=== PATIENT | female | born 1950 | race Two or more races ===

== ENCOUNTER 2023-10-06 19:05 | Inpatient (IN) | payer OTHER ==
[~2023-10-06] VITALS: Ht 165.1 cm; Wt 90.0 kg
[2023-10-06 20:06] LABS: Basophils # (auto) 0.1 10 ^3/uL (0-0.2); Basophils % (auto) 1.1 % (0.0-2.0); Eosinophils # (auto) 0.3 10 ^3/uL (0-0.8); Eosinophils % (auto) 3.4 % (0.0-7.0); Hematocrit 44.6 % (36.0-46.0); Hemoglobin 14.5 g/dL (12.2-16.2); Lymphocytes # (auto) 2.2 10 ^3/uL (0.4-5.4); Lymphocytes % (auto) 26.7 % (10.0-50.0); Mean Corpuscular Hemoglobin 29.3 pg (28.0-32.0); Mean Corpuscular Hgb Conc. 32.6 g/dL (32.0-36.0); Mean Corpuscular Volume 89.8 fL (80.0-100.0); Monocytes # (auto) 0.9 10 ^3/uL (0-1.3); Monocytes % (auto) 11.1 % (0.0-12.0); Neutrophils # (auto) 4.7 10 ^3/uL (1.6-8.6); Neutrophils % (auto) 57.7 % (37.0-80.0); Nucleated Red Blood Cells % 0.1 %; Red Blood Cells 4.97 10^6/uL (4.0-5.20); Red Cell Distribution Width 18.6 % (11.8-14.3); White Blood Cell 8.2 10^3/uL (4.4-10.8)
[2023-10-06] MEDS: dilTIAZem 25 MG/5 ML VIAL IV ONE ×2 (20:21→23:36)
[2023-10-06 20:28] VITALS: RESP 17; O2SAT 98
[2023-10-06 21:21] LABS: Alanine Aminotransferase 86 U/L (7-40); Alkaline Phosphatase 165 U/L (46-116); Anion Gap 7 (5-15); Aspartate Aminotransferase 98 U/L (13-40); BUN/Creatinine Ratio 12.6 (10.0-20.0); Bilirubin, Total 0.4 mg/dL (0.2-1.0); Blood Urea Nitrogen 12 mg/dL (9-23); Calcium 9.7 mg/dL (8.7-10.4); Carbon Dioxide 27 mmol/L (20-30); Chloride 107 mmol/L (98-107); Glucose 83 mg/dL (74-106); Potassium 3.9 mmol/L (3.5-5.1); Sodium 141 mmol/L (136-145)
[2023-10-06] MEDS: ASPirin 325 MG TAB PO ONE (22:18)
[2023-10-06] MEDS: dilTIAZem 125mg/125ml BAG KIT 125 ML IV ONE (23:45)
[2023-10-07] VITALS (8 sets, daily range): BP systolic 124–142; BP diastolic 77–90; PULSE 66–90; RESP 16–23; TEMP 98.4; O2SAT 84–99
[2023-10-07] MEDS ORDERED: DEXTROSE (50%) 50ML SYRG IV PRN (00:30)
[2023-10-07] MEDS ORDERED: ONDANSETRON HCL 4 MG/2 ML VIAL IV PRN (00:30)
[2023-10-07] MEDS ORDERED: DOCUSATE SOD 100 MG CAP PO PRN (00:30)
[2023-10-07] MEDS ORDERED: IBUPROFEN 600 MG TAB PO PRN (00:30)
[2023-10-07] MEDS: dilTIAZem 125mg/125ml BAG KIT 125 ML IV ONE (01:01)
[2023-10-07] MEDS: ENOXAPARIN SOD 100 MG/1 ML SYRINGE SC SCH ×2 (02:01→17:02)
[2023-10-07] MEDS ORDERED: MORPHINE SULFATE INJ 2 MG/ml SYRG IV PRN (04:30)
[2023-10-07] MEDS ORDERED: NITROGLYCERIN 0.4 MG SL TAB SL PRN (04:30)
[2023-10-07] MEDS: HYDROcodone-ACET 5/325MG TAB PO PRN (04:57)
[2023-10-07 05:31] LABS: Basophils # (auto) 0.1 10 ^3/uL (0-0.2); Basophils % (auto) 1.1 % (0.0-2.0); Eosinophils # (auto) 0.3 10 ^3/uL (0-0.8); Eosinophils % (auto) 3.4 % (0.0-7.0); Hematocrit 39.7 % (36.0-46.0); Hemoglobin 13.1 g/dL (12.2-16.2); Lymphocytes # (auto) 1.9 10 ^3/uL (0.4-5.4); Lymphocytes % (auto) 21.9 % (10.0-50.0); Mean Corpuscular Hemoglobin 29.4 pg (28.0-32.0); Mean Corpuscular Hgb Conc. 33.1 g/dL (32.0-36.0); Monocytes # (auto) 0.7 10 ^3/uL (0-1.3); Monocytes % (auto) 8.4 % (0.0-12.0); Neutrophils # (auto) 5.7 10 ^3/uL (1.6-8.6); Neutrophils % (auto) 65.2 % (37.0-80.0); Nucleated Red Blood Cells % 0.1 %; Red Blood Cells 4.46 10^6/uL (4.0-5.20); Red Cell Distribution Width 18.5 % (11.8-14.3); White Blood Cell 8.7 10^3/uL (4.4-10.8)
[2023-10-07 05:50] LABS: Albumin 3.4 g/dL (3.2-4.8); Alkaline Phosphatase 129 U/L (46-116); Anion Gap 6 (5-15); Aspartate Aminotransferase 61 U/L (13-40); BUN/Creatinine Ratio 14.7 (10.0-20.0); Bilirubin, Total 0.5 mg/dL (0.2-1.0); Blood Urea Nitrogen 11 mg/dL (9-23); Calcium 8.8 mg/dL (8.7-10.4); Carbon Dioxide 25 mmol/L (20-30); Chloride 110 mmol/L (98-107); Glucose 61 mg/dL (74-106); Potassium 3.5 mmol/L (3.5-5.1); Sodium 141 mmol/L (136-145); Total Protein 6.8 g/dL (5.7-8.2)
[2023-10-07] MEDS: SODIUM CHLOR 0.9% PF (SALINE LOCK) 10ML VIAL/SYR IV SCH (06:03)
[2023-10-07 06:10] LABS: Alanine Aminotransferase 65 U/L (7-40)
[2023-10-07] MEDS: InsuLIN REG 1unit/0.01ml Soln (100units/ml) SC SCH (06:55)
[2023-10-07] MEDS: ACCU-CHEK COMFORT CURVE STRIP VI SCH (06:55)
[2023-10-07] MEDS ORDERED: CARVEDILOL 3.125 MG TAB PO SCH (10:00)
[2023-10-07] MEDS ORDERED: FUROSEMIDE 40 MG/4 ML VIAL IV SCH (10:00)
[2023-10-07] MEDS: FAMOTIDINE (10MG/ML) 2ML VL IV SCH (10:55)
[2023-10-07] MEDS: FUROSEMIDE 40 MG/4 ML VIAL IV SCH (11:06)
[2023-10-07] MEDS: ENOXAPARIN SOD 40 MG/0.4 ML SYRINGE SC SCH (11:06)
[2023-10-07 12:55] LABS: Urine Bacteria None Seen /hpf (None Seen)
[2023-10-07 13:05] LABS: Urine Blood TRACE /uL (Negative); Urine Clarity Clear (Clear); Urine Color Colorless (Yellow); Urine Protein, UAD Negative (Negative); Urine Specific Gravity 1.005 (1.001-1.035); Urine Urobilinogen Normal (Negative); Urine WBC <1 /hpf (0 - 5); Urine pH 6.5 (5.0-9.0)
[2023-10-07] MEDS: IOHEXOL 350 MG/ML 100ML IJ ONE (14:37)
[2023-10-07] MEDS: CARVEDILOL 3.125 MG TAB PO ONE (15:15)
[2023-10-07] MEDS ORDERED: VANCOMYCIN PER PHARMACY 0 MG IV SCH (16:30)
[2023-10-07] MEDS: CEFEPIME 1GM/ 50ML 50 ML IV ONE (17:28)
[2023-10-07] MEDS: ALBUTEROL SULF 2.5 MG/0.5ML(0.5%) NEB SOLN NEB PRN (17:56)
[2023-10-07] MEDS: VANCOMYCIN 1GM/200ML 200 ML IV ONE (20:17)
[2023-10-07] MEDS: CARVEDILOL 3.125 MG TAB PO SCH (22:56)
[2023-10-08] MEDS ORDERED: CEFEPIME 1GM/ 50ML 50 ML IV SCH (02:00)
== END 2023-10-07 23:42 | disposition short-term general hospital (02) | DRG 280 ==
LOC: ER 19:05 → TELE 10-07 04:29
PROVIDERS: ADMIT Internal Medicine Geriatric Medicine; ATTEND Emergency Medicine
DX: I11.0 Hypertensive heart disease with heart failure (principal); I26.93 Single subsegmental thrombotic pulmonary embolism without acute cor pulmonale; I21.A1 Myocardial infarction type 2; J15.69 Pneumonia due to other Gram-negative bacteria; J15.9 Unspecified bacterial pneumonia; I50.23 Acute on chronic systolic (congestive) heart failure; I47.10 Supraventricular tachycardia, unspecified; R74.8 Abnormal levels of other serum enzymes; I27.20 Pulmonary hypertension, unspecified; E11.9 Type 2 diabetes mellitus without complications; I08.3 Combined rheumatic disorders of mitral, aortic and tricuspid valves; Z82.49 Family history of ischemic heart disease and other diseases of the circulatory system
CPT/HCPCS: 36415; 71045; 71275; 80053; 81001; 82962; 83880; 84484; 85025; 85379; 93005; 93306; 93970; 94640; 99291; G0378; J1815; J3490

== ENCOUNTER 2024-10-30 19:47 | Inpatient (IN) | payer OTHER ==
[~2024-10-30] VITALS: Ht 162.6 cm; Wt 103.4 kg
[~2024-10-30 19:47] MED LIST: DABI150C7 PO; DILT180C52 PO; MONT-8 PO; OMEP1CAP70 PO; POTA-228 PO
--- NOTE | 2024-10-30 20:11 | ED.PDOC ---
HPI Comments HPI: 74 year old female presents to the emergency department via EMS with a chief complaint of RT side chest pain with generalized weakness. Per EMS, patient had a valve replacement about 1 month ago at [facility], was experiencing RT sided chest pain before surgery, patient noticed she is still experiencing RT sided chest pain, described as a pinpoint pain. For the past 2 weeks, patient has been experiencing generalized weakness, bilateral lower extremity swelling. Upon EMS arrival patient was tachycardiac with HR between 140-150. She is on 2L NC O2 at home. No other symptoms or modifying factors present at this time. Initial Vitals BP: 112/88 HR: 148 RR: 18 O2: 98% Temp: 98.4F Past Medical History: CHF, HTN, DM, HLD, asthma,CVA Past Surgical History: valve replacement Social History: Denies ETOH, smoking, and drug use. Medications: albuterol, aspirin, Lasix, metoprolol, insulin Allergies: NKDA HPI: Poor Historian. REVIEW OF SYSTEMS: CONSTITUTIONAL: Denies acute: fever, diaphoresis, chills, HEAD: Denies acute: headache, photophobia Eyes: Denies acute: Double vision, vision loss, eye pain, eye discharge. EARS: Denies acute: tinnitus, hearing loss, ear discharge, ear pain, THROAT: Denies acute: sore throat, swelling, difficulty swallowing , pain with swallowing, change in voice. NECK: Denies acute: neck pain, neck swelling, stiff neck. HEART: Denies acute : palpitations, LUNGS: Denies acute: SOB, wheezing, cough, hemoptysis ABDOMEN: Denies acute: abdominal pain, Nausea, Vomiting, diarrhea, melena , hematemesis, hematochezia SKIN: Denies acute: rash, redness, lesions, itchiness. EXTREMITIES: Denies acute: calf pain, numbness, tingling, weakness, denies pain in extremity. Denies acute: Low back pain. Neuro: Denies acute: focal neurological deficit, motor or sensory focal neurological deficit, tremors, seizure like activity, confusion, change in mental status, loss of bowel or bladder function, cauda equina like symptoms. : Denies acute: dysuria, hematuria, flank pain, increase in urinary frequency. PSYCH: Denies acute: hallucination, suicidal ideation, homicidal ideation. FEMALE: Denies acute: abnormal vaginal bleeding, foul odor, unusual discharge. PHYSICAL EXAM: General: ----NO----acute distress, awake and alert. Head: normocephalic, atraumatic. Neck: supple, trachea is midline, no swelling. Throat: Normal phonation. Eyes:, no erythema, no purulent discharge, no proptosis, no icterus. Heart: regular TACHYCARDIA, no significant murmur appreciated. Lungs: no apparent respiratory distress, Able to speak in full sentences. No wheezing, no rhonchi, no crackles. No stridors Clear to auscultation bilaterally. Abdomen: non tender to palpation, non distended, soft, no guarding, no rebound, + bowel sounds. OBESE Neuro: Awake, Alert, oriented to name, self, situation, follows commands GCS=15. Speech is normal. Skin: no petechia, no purpura, no cyanosis, non-pale, not jaundice. Lower extremities: --2/4 b/l - Pitting edema no deformity, no focal swelling, no calf TTP. Makes eye contact. moves all four extremities. Face: no apparent facial droop. ED COURSE: Bilateral lower extremities DVT was initiated, however ultrasound only performed 1 extremity. Tried to reach out to ultrasound 2 separate times with no answer. DISCLAIMER: This medical document was created using an electronic medical record system with voice recognition software and computerized dictation system. Although this document has been carefully reviewed, there might still be some phonetic and typographical errors. Occasional wrong-word or "sound-alike" substitutions may have occurred due to the inherent limitations of voice recognition software. These areas are purely typographical due to imperfections of the software programs and do not reflect any compromise in the patient's medical care. Please read the chart carefully and recognize, using context, where these substitutions have occurred. Chief Complaint: Chest Pain Time Seen by MD: 20:00 Reviewed Notes: Medications, Allergies Allergies: Coded Allergies: NO KNOWN ALLERGIES (Unverified , 10/06/23) Information Source: Patient, Emergency Med Personnel Mode of Arrival: EMS Severity: Moderate Timing: Weeks Duration: Since onset Prehospital treatment: Oxygen Location: Chest (R) Radiation: No Radiation Quality: Other (pinpoint) Onset: At Rest Cardiac Risk Factors: Hyperlipidemia, HTN, Diabetes PE Risk Factors: Recent Surgery History of: Similar pain in past, Other Modifying Factors: Nothing Past Medical History PAST MEDICAL HISTORY: Asthma, CHF, CVA, DM, High Lipids, HTN Surgical History (Other): valve replacement BIRD RAISER History: No Pertinent BIRD RAISER History Family History Family History: No family hx of Cancer, No family hx of DM, No family hx of Heart ade, No family hx of HTN, No family hx ofKidney ade, No family hx of Liver ade, No family hx of Lung ade, No family hx of Stroke Family History (Other): CHF Social History Smoker: Non-Smoker Alcohol: Denies ETOH Use Drugs: Denies Drug Use Lives In: Home EKG EKG : Pulse Rate (adult): 138 Cardiac Rhythm: ST Block: RBBB Was a procedure done? Was a procedure done?: No CP Differential Dx Differential Diagnosis: N/A Differential Diagnosis: Other (Ddx include but not limitied to gastritis, musculoskeletal pain, radiculopathy, atypical chest pain, dissection, aneurysm, ACS, unstable angina, hiatal hernia, GERD, anxiety, costochondritis, PE, pneumothroax, neoplasm, cardiac ischemia, drug abuse, anemia.) X-Ray, Labs, Meds, VS Vital Signs Date Time Temp Pulse Resp B/P (MAP) Pulse Ox O2 Delivery O2 Flow Rate FiO2 10/31/24 05:12 98.1 130 20 128/88 (101) 97 98.1 10/31/24 00:25 98.1 130 20 124/86 (99) 97 98.1 10/30/24 22:45 133 10/30/24 22:42 98.1 130 20 126/87 (100) 97 98.1 10/30/24 22:42 130 20 97 Room Air* 0 21 10/30/24 21:15 112/86 10/30/24 20:11 138 10/30/24 20:04 98.4 148 18 112/88 98 98.4 10/30/24 20:02 138 Lab Test 10/31/24 05:33 10/31/24 04:03 10/31/24 03:04 10/30/24 23:19 Range/Units POC Glucose 109 H 73 70-106 mg/dl Prothrombin Time 11.5 9.3-11.8 sec Prothrombin Time INR 1.09 0.9-1.15 Activated Partial Thromboplast Time 40.7 H 24.5-34.5 SEC Troponin I High Sensitivity 1049 *H </=34 ng/L Test 10/30/24 21:06 10/30/24 20:10 Range/Units Troponin I High Sensitivity 950 *H 1018 *H </=34 ng/L White Blood Count 11.0 H 4.4-10.8 10^3/uL Red Blood Count 3.92 L 4.0-5.20 10^6/uL Hemoglobin 11.3 L 12.2-16.2 g/dL Hematocrit 34.7 L 36.0-46.0 % Mean Corpuscular Volume 88.4 80.0-100.0 fL Mean Corpuscular Hemoglobin 28.7 28.0-32.0 pg Mean Corpuscular Hemoglobin Concent 32.5 32.0-36.0 g/dL Red Cell Distribution Width 16.4 H 11.8-14.3 % Platelet Count 270 140-450 10^3/uL Mean Platelet Volume 8.4 6.9-10.8 fL Neutrophils (%) (Auto) 62.1 37.0-80.0 % Lymphocytes (%) (Auto) 16.0 10.0-50.0 % Monocytes (%) (Auto) 10.5 0.0-12.0 % Eosinophils (%) (Auto) 10.3 H 0.0-7.0 % Basophils (%) (Auto) 1.1 0.0-2.0 % Neutrophils # (Auto) 6.8 1.6-8.6 10 ^3/uL Lymphocytes # (Auto) 1.8 0.4-5.4 10 ^3/uL Monocytes # (Auto) 1.2 0-1.3 10 ^3/uL Eosinophils # (Auto) 1.1 H 0-0.8 10 ^3/uL Basophils # (Auto) 0.1 0-0.2 10 ^3/uL Nucleated Red Blood Cells 0.0 % D-Dimer, Quantitative 1.26 H 0.0-0.49 mg/L FEU Sodium Level 144 136-145 mmol/L Potassium Level 4.6 3.5-5.1 mmol/L Chloride Level 105 98-107 mmol/L Carbon Dioxide Level 29 20-31 mmol/L Anion Gap 10 5-15 Blood Urea Nitrogen 18 9-23 mg/dL Creatinine 0.99 0.550-1.02 mg/dL Glomerular Filtration Rate Calc 59 >90 mL/min BUN/Creatinine Ratio 18.2 10.0-20.0 Serum Glucose 85 74-106 mg/dL Calcium Level 9.6 8.7-10.4 mg/dL Magnesium Level 1.9 1.6-2.6 mg/dL Total Bilirubin 0.2 0.2-1.0 mg/dL Aspartate Amino Transferase (AST) 28 13-40 U/L Alanine Aminotransferase (ALT) 14 7-40 U/L Alkaline Phosphatase 86 46-116 U/L B-Type Natriuretic Peptide 553.95 0-100 pg/mL Total Protein 8.2 5.7-8.2 g/dL Albumin 4.3 3.2-4.8 g/dL Current Medications Medications (Trade) Dose Ordered Sig/Shelley Route Start Time Stop Time Status Last Admin Furosemide (Lasix Injection) 20 mg ONCE ONCE IV 10/30/24 21:15 10/30/24 22:07 DC 10/30/24 21:15 Sodium Chloride (Saline Lock Ns) 10 ml Q8HR IV 10/31/24 06:00 10/31/24 05:19 Heparin Sodium (Porcine) 5,000 units ONCE ONCE IV 10/31/24 00:45 10/31/24 00:47 DC 10/31/24 01:02 Heparin Sodium/ Dextrose 250 ml @ 10 mls/hr Q24H IV 10/31/24 04:45 10/31/24 04:46 [place] [id number] Ph: [phone] DIAGNOSTIC IMAGING Diagnostic Imaging Report : [id number] Signed PATIENT: STELLA GUZMÁN ACCT: [id number] UNIT: [id number] : 1950 LOC: ER ROOM / BED: / AGE / SEX: 74 / F ADM STATUS: REG ER SERVICE 99 ORDERING PHYSICIAN: ERICH CAMPA DO PROCEDURE(s): CXRP - CHEST PORTABLE REASON: cp ORDER NUMBER(s): [id number], ACCESSION NUMBER(s): [id number] EXAMINATION: XY CHEST PORTABLE CLINICAL HISTORY: cp COMPARISON: At the time of this review, no recent prior studies are available for comparison. FINDINGS: Patient is rotated to the right. Multiple wires overlie the thorax. Cardiac silhouette is enlarged. Diffuse interstitial prominence and vascular redistribution. Questionable blunting of the right costophrenic angle. No definite pneumothorax. IMPRESSION: Limited study. Congestive type pattern with interstitial edema and possible small right pleural effusion. Correlate to exclude atypical infection. ATED BY: THONY EDDY MD DICTATED DATE/TIME: 10/30/242230 SIGNED BY: THONY EDDY MD SIGNED DATE/TIME: 10/30/242230 CC: [place] [id number] Ph: [phone] DIAGNOSTIC IMAGING Diagnostic Imaging Report : [id number] Signed PATIENT: STELLA GUZMÁN ACCT: [id number] UNIT: [id number] : 1950 LOC: ER ROOM / BED: / AGE / SEX: 74 / F ADM STATUS: REG ER SERVICE 39 ORDERING PHYSICIAN: ERICH CAMPA DO PROCEDURE(s): CTACH - CT ANGIO CHEST CONTRAST REASON: CP/ ORDER NUMBER(s): [id number], ACCESSION NUMBER(s): [id number] CTA Chest with intravenous contrast INDICATION: CP/ COMPARISON: CT CT ANGIO CHEST CONTRAST on DOS: 10/07/23 TECHNIQUE: Multidetector spiral CTA of the chest was performed of the chest with intravenous contrast. PULMONARY ANGIOGRAPHY PROTOCOL was utilized using a bolus- tracking technique centered on the main pulmonary artery. Axial, coronal and sagittal multiplanar and MIP reformats were performed. Radiation Dose : 1. Chest: CTDI volume is 29.14 mGy. Dose-length product is 2.54 mGy*cm The dose indicators for CT are the volume Computed Tomography (CT) Dose Index (CTDIvol) and the Dose Length Product (DLP), and are measured in units of mGy and mGy-cm, respectively. These indicators are not patient dose, but values generated from the CT scanner acquisition factors. The report includes radiation exposure data for exposures received during this examination. Findings: Pulmonary arteries: Diagnostic quality adequate for assessment of the level of the proximal subsegmental arteries. No visualized filling defect. Main pulmonary artery measures 3.6 cm in diameter. Lower neck: Unremarkable. Lungs: Diffuse coarse reticular opacities and ground-glass attenuation throughout the zyxnn-gcnmaus-jjzr-left lung. Mild honeycombing possible at the right lung apex. No focal consolidation. Central airways are clear. Pleura: No effusion or pneumothorax. Heart/Vascular Structures: Mild cardiomegaly. Aortic valve replacement and multivessel coronary atherosclerosis. Aortic and branch vessel atherosclerosis without evidence of dissection. Moderate size hiatal hernia. Lymph Nodes: Multi station mediastinal and bilateral hilar lymphadenopathy. Musculoskeletal: No evidence of acute fracture. Chronic appearing T12 wedge compression deformity. Soft tissues: Unremarkable. Upper abdomen: No acute findings. Partially assessed right renal cyst. IMPRESSION: 1. No pulmonary embolism to the level of the proximal subsegmental arteries. 2. Cardiomegaly and enlarged main pulmonary artery suggesting heart failure with pulmonary artery hypertension. 3. Diffuse bilateral coarse reticular opacities throughout both lungs. A prior CTA chest from 10/07/2023 describes a similar imaging appearance, although the exam is not available for review. Interstitial lung disease is favored overt acute process such as infection. Numerous mediastinal and bilateral hilar lymph nodes are also present. ATED BY: NEEMA SMITH MD DICTATED DATE/TIME: 10/30/242333 SIGNED BY: NEEMA SMITH MD SIGNED DATE/TIME: 10/30/242333 CC: [place] [id number] Ph: [phone] DIAGNOSTIC IMAGING Diagnostic Imaging Report : [id number] Signed PATIENT: STELLA GUZMÁN ACCT: [id number] UNIT: [id number] : 1950 LOC: ER ROOM / BED: / AGE / SEX: 74 / F ADM STATUS: REG ER SERVICE 39 ORDERING PHYSICIAN: ERICH CAMPA DO PROCEDURE(s): BLDVT - BiLat Lower DVT REASON: SWELLING ORDER NUMBER(s): [id number], ACCESSION NUMBER(s): [id number] Right lower extremity venous duplex Clinical History: SWELLING Comparison: US BILAT LOWER DVT on DOS: 8/2/24 Technique: Duplex Doppler evaluation of the deep venous system of the left lower extremity from the common femoral vein to the popliteal vein including color Doppler and spectral/pulsed waveform analysis was performed. Findings: The common femoral vein demonstrates appropriate compressibility and waveform variability. There is compressibility/patency of the great saphenous vein at the proximal thigh. The femoral vein demonstrates appropriate compressibility and waveform kimberly iability. The deep femoral vein demonstrates appropriate compressibility and waveform variability. The popliteal vein demonstrates appropriate compressibility and waveform variability. There is normal compressibility at the tibioperoneal trunk. Impression: 1. No left femoropopliteal venous thrombosis. ATED BY: NEEMA SMITH MD DICTATED DATE/TIME: 10/30/242324 SIGNED BY: NEEMA SMITH MD SIGNED DATE/TIME: 10/30/242324 CC: Time of 1ST Reevaluation: 20:30 Reevaluation 1ST: Unchanged Time of 2ND Reevaluation: 22:43 (The case was discussed with the cardiology on- call team (HPI, physical exam, labs and diagnostic tests that were available at the time of disposition, ED course, treatment plan) on the phone. They recomme nd keeping the patient in our facility. They recommend echocardiogram in the morning. They recommend to rule out PE and DVT. They recommend CT angiogram of the chest. If there is no pericardial effusion on CT scan then start the heparin. He said the EKGs shows IV conduction delay consistent with bundle branch block. Dr. Eddy) Reevaluation 2ND: Unchanged Time of 3RD Reevaluation: 23:25 (The case was discussed with the [facility] admitting team (HPI, physical exam, labs and diagnostic tests that were available at the time of disposition, ED course, treatment plan) on the phone. They authorized us to keep the patient our facility because patient is unstable. Authorization #[id number] Conley.) Reevaluation 3RD: Unchanged Patient Education/Counseling: Diagnosis, Treatment Family Education/Counseling: No Family Present Comments MDM: patient presented with the above HPI.--chest pain/generalized weakness----workup was initiated. patient was found with the above mentioned diagnosis. the following medications were ordered: please refer to order lists of meds and tests obtained by myself Dr. Campa. Patient ED course and VS have been stabilized. Patient has been reassessed in the ED and remained in a stable condition. Pertinent incidental findings were discussed with the patient and/or family. Patient/family voices understanding and is agreeable with plan. Patient has been observed in the ED adequate length of time to insure improvement/stability. Escalation of care considered: Consideration of escalation to observation or admission Cardiology was consulted. [facility] was consulted. Patient was ADMITTED to the medicine team for further evaluation and treatment of their presentation. All the reports of any imaging studies that were ordered by myself were reviewed by myself. Departure 1 Departure Time of Disposition: 20:47 Impression: Primary Impression: Chest pain Additional Impressions: Generalized weakness Left bundle branch block Tachycardia Non-STEMI (non-ST elevated myocardial infarction) Disposition: 02 SHORT TERM HOSPITAL Admit to: Tele Condition: Guarded Discharged With: Self Critical Care Note Critical Care Time?: Yes (1 hr-critical care time only) Heart Score Heart Score: Heart Score Response (Comments) Value History Moderate Suspicious [address]-Deviation 2 Age >65 2 Risk Factors >3 or Hx ASHD 2 Troponin >3 x's Normal limit 2 Total 9 I personally scribed for ERICH CAMPA DO ([email or web address]) on 10/30/24 at 20:11. Electronically submitted by Zulma Restrepo ([email or web address]). I personally scribed for ERICH CAMPA DO ([email or web address]) on 10/30/24 at 21:09. Electronically submitted by Zulma Restrepo ([email or web address]). I personally scribed for ERICH CAMPA DO ([email or web address]) on 10/30/24 at 22:39. Electronically submitted by Zulma Restrepo ([email or web address]). I personally scribed for ERICH CAMPA DO ([email or web address]) on 10/31/24 at 02:58. Electronically submitted by Zulma Restrepo ([email or web address]). I personally scribed for ERICH CAMPA DO ([email or web address]) on 10/31/24 at 06:03. Electronically submitted by Zulma Restrepo ([email or web address]). ERICH CAMPA DO Oct 30, 2024 20:11
[2024-10-30 20:26] LABS: Hematocrit 34.7 % (36.0-46.0); Hemoglobin 11.3 g/dL (12.2-16.2); Mean Corpuscular Hemoglobin 28.7 pg (28.0-32.0); Mean Corpuscular Volume 88.4 fL (80.0-100.0); Nucleated Red Blood Cells % 0.0 %
[2024-10-30 20:39] LABS: Alanine Aminotransferase 14 U/L (7-40); Albumin 4.3 g/dL (3.2-4.8); Alkaline Phosphatase 86 U/L (46-116); Anion Gap 10 (5-15); BUN/Creatinine Ratio 18.2 (10.0-20.0); Blood Urea Nitrogen 18 mg/dL (9-23); Calcium 9.6 mg/dL (8.7-10.4); Carbon Dioxide 29 mmol/L (20-31); Chloride 105 mmol/L (98-107); Glucose 85 mg/dL (74-106); Magnesium 1.9 mg/dL (1.6-2.6); Potassium 4.6 mmol/L (3.5-5.1); Sodium 144 mmol/L (136-145); Total Protein 8.2 g/dL (5.7-8.2)
[2024-10-30 20:52] LABS: Bilirubin, Total 0.2 mg/dL (0.2-1.0)
[2024-10-30] MEDS: FUROSEMIDE 20 MG/2 ML VIAL IV ONE (21:15)
--- NOTE | 2024-10-30 21:32 | ECG ---
[facility] Test Date: 2024-10-30 Test Time: 21:30:19 Pat Name: STELLA GUZMÁN Department: ED Room: [address] [place] [address] Gender: F Curriculum Designer: ASHLEE : 1950 Requested By: ERICH CAMPA Order Number: [id number] Reading MD: Travis Coffman Measurements Intervals [place] Rate: 136 P: 0 MD: 0 QRS: -38 QRSD: 154 T: 121 QT: 343 QTc: 517 Interpretive Statements Junctional tachycardia Left bundle branch block Electronically Signed On 10-31-2024 18:48:08 PDT by Travis Coffman Please click the below link to view image of tracing.
--- NOTE | 2024-10-30 22:33 | DVH ---
EXAMINATION: XY CHEST PORTABLE CLINICAL HISTORY: cp COMPARISON: At the time of this review, no recent prior studies are available for comparison. FINDINGS: Patient is rotated to the right. Multiple wires overlie the thorax. Cardiac silhouette is enlarged. Diffuse interstitial prominence and vascular redistribution. Question able blunting of the right costophrenic angle. No definite pneumothorax. IMPRESSION: Limited study. Congestive type pattern with interstitial edema and possible small right pleural effusion. Correlate to exclude atypical infection.
[2024-10-30 22:42] VITALS: PULSE 130; RESP 20; O2SAT 97
--- NOTE | 2024-10-30 22:47 | ECG ---
[facility] Test Date: 2024-10-30 Test Time: 22:45:23 Pat Name: STELLA GUZMÁN Department: ED Room: [address] [place] [address] Gender: F Souvenir Assembler: ASHLEE : 1950 Requested By: ERICH CAMPA Order Number: [id number] Reading MD: Travis Coffman Measurements Intervals [place] Rate: 133 P: 0 MA: 0 QRS: -40 QRSD: 154 T: 116 QT: 355 QTc: 529 Interpretive Statements Junctional tachycardia Left bundle branch block Electronically Signed On 10-31-2024 18:48:18 PDT by Travis Coffman Please click the below link to view image of tracing.
--- NOTE | 2024-10-30 23:27 | DVH ---
Right lower extremity venous duplex Clinical History: SWELLING Comparison: US BILAT LOWER DVT on DOS: 10/07/23 Technique: Duplex Doppler evaluation of the deep venous system of the left lower extremity from the common femor al vein to the popliteal vein including color Doppler and spectral/pulsed waveform analysis was perfo rmed. Findings: The common femoral vein demonstrates appropriate compressibility and waveform variability. There is compressibility/patency of the great saphenous vein at the proximal thigh. The femoral vein demonstrates appropriate compressibility and waveform variability. The deep femoral vein demonstrates appropriate compressibility and waveform variability. The popliteal vein demonstrates appropriate compressibility and waveform variability. There is normal compressibility at the tibioperoneal trunk. Impression: 1. No left femoropopliteal venous thrombosis.
--- NOTE | 2024-10-30 23:36 | DVH ---
CTA Chest with intravenous contrast INDICATION: CP/ COMPARISON: CT CT ANGIO CHEST CONTRAST on DOS: 10/07/23 TECHNIQUE: Multidetector spiral CTA of the chest was performed of the chest with intravenous contrast . PULMONARY ANGIOGRAPHY PROTOCOL was utilized using a bolus-tracking technique centered on the main p ulmonary artery. Axial, coronal and sagittal multiplanar and MIP reformats were performed. Radiation Dose : 1. Chest: CTDI volume is 29.14 mGy. Dose-length product is 2.54 mGy*cm The dose indicators for CT are the volume Computed Tomography (CT) Dose Index (CTDIvol) and the Dose Length Product (DLP), and are measured in units of mGy and mGy-cm, respectively. These indicators are not patient dose, but values generated from the CT scanner acquisition factors. The report includes radiation exposure data for exposures received during this examination. Findings: Pulmonary arteries: Diagnostic quality adequate for assessment of the level of the proximal subsegmen rubin arteries. No visualized filling defect. Main pulmonary artery measures 3.6 cm in diameter. Lower neck: Unremarkable. Lungs: Diffuse coarse reticular opacities and ground-glass attenuation throughout the nereq-ykhsend-e willis-left lung. Mild honeycombing possible at the right lung apex. No focal consolidation. Central ai rways are clear. Pleura: No effusion or pneumothorax. Heart/Vascular Structures: Mild cardiomegaly. Aortic valve replacement and multivessel coronary athe rosclerosis. Aortic and branch vessel atherosclerosis without evidence of dissection. Moderate size h iatal hernia. Lymph Nodes: Multi station mediastinal and bilateral hilar lymphadenopathy. Musculoskeletal: No evidence of acute fracture. Chronic appearing T12 wedge compression deformity. Soft tissues: Unremarkable. Upper abdomen: No acute findings. Partially assessed right renal cyst. IMPRESSION: 1. No pulmonary embolism to the level of the proximal subsegmental arteries. 2. Cardiomegaly and enlarged main pulmonary artery suggesting heart failure with pulmonary artery hyp ertension. 3. Diffuse bilateral coarse reticular opacities throughout both lungs. A prior CTA chest from 024 describes a similar imaging appearance, although the exam is not available for review. Interstiti al lung disease is favored overt acute process such as infection. Numerous mediastinal and bilateral hilar lymph nodes are also present.
[2024-10-31] MEDS: HEPARIN SODIUM (PORCINE) 5000 UNITS/ML 1ML VIAL IV ONE (01:02)
[2024-10-31 04:36] LABS: INR 1.09 (0.9-1.15); Partial Thromboplastin Time 40.7 SEC (24.5-34.5); Prothrombin Time 11.5 sec (9.3-11.8)
[2024-10-31] MEDS: HEPARIN DRIP/D5W 100UNITS/ML 250 ML IV SCH (04:46)
[2024-10-31] MEDS: SODIUM CHLOR 0.9% PF (SALINE LOCK) 10ML VIAL/SYR IV SCH (05:19)
[2024-10-31] MEDS: IOHEXOL 350 MG/ML 100ML IJ ONE (07:17)
[2024-10-31 07:30] VITALS: PULSE 63; RESP 23; O2SAT 100
[2024-10-31 08:37] LABS: Hematocrit 31.8 % (36.0-46.0); Hemoglobin 10.4 g/dL (12.2-16.2); Mean Corpuscular Hemoglobin 28.8 pg (28.0-32.0); Mean Corpuscular Volume 88.0 fL (80.0-100.0); Nucleated Red Blood Cells % 0.0 %
[2024-10-31 08:53] LABS: Alanine Aminotransferase 15 U/L (7-40); Albumin 4.2 g/dL (3.2-4.8); Alkaline Phosphatase 81 U/L (46-116); Anion Gap 8 (5-15); BUN/Creatinine Ratio 18.0 (10.0-20.0); Blood Urea Nitrogen 18 mg/dL (9-23); Calcium 9.4 mg/dL (8.7-10.4); Carbon Dioxide 29 mmol/L (20-31); Chloride 105 mmol/L (98-107); Glucose 101 mg/dL (74-106); Magnesium 2.0 mg/dL (1.6-2.6); Potassium 4.2 mmol/L (3.5-5.1); Sodium 142 mmol/L (136-145); Total Protein 7.5 g/dL (5.7-8.2); Triglycerides 90 mg/dL (< 150)
[2024-10-31 08:54] LABS: Bilirubin, Total 0.3 mg/dL (0.2-1.0); Cholesterol 150 mg/dL (< 200); HDL Cholesterol 54 mg/dL (40-59)
--- NOTE | 2024-10-31 09:58 | DVHINCON2 ---
Date Seen: Oct 31, 2024 Referring Physician MD Donnell Reason for Consultation NSTEMI, CP History of Present Illness This is a 74-year-old female patient who presents to the emergency room with chief complaint of generalized weakness, chest pain, dizziness, and diaphoresis. The patient states that symptoms all began at approximately 3:00 p.m. yesterday while she was watching TV. She describes the chest pain as unprovoked, constant, pressure-like in nature, located to left and right chest area and nonradiating. Associated symptoms include dizziness and diaphoresis. The patient's daughter called EMS and the patient was brought to the emergency room for further evaluation. Initial twelve lead electrocardiogram reveals a junctional tachycardia with left bundle branch block. Initial troponin level of 1018ng/L with down trend then up trend. Significant past medical history includes severe aortic valve stenosis status post TAVR (bioprosthetic), congestive heart failure, SVT, hypertension, dyslipidemia, pulmonary hypertension, PE (on dabigatran), type 2 diabetes mellitus, asthma, and morbid obesity. 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 Note, the patient and her daughter report that the patient underwent a coronary angiogram in September 2024 in which no catheter based intervention was deemed necessary. The patient was then taken for TAVR in September 2024 at [place]. Past Medical History Past medical history reviewed. No other significant than mentioned above. Past Surgical History TAVR in September 2024 Family History Family history reviewed. Social History Denies the use of tobacco, alcohol or illicit drugs. Allergies: Coded Allergies: NO KNOWN ALLERGIES (Unverified , 10/06/23) Home Meds Reported Medications Furosemide (Furosemide) 40 Mg Tab, 1 TAB PO TID 10/31/24 Prednisone (Prednisone) 5 Mg Tab, 1 TAB PO DAILY 10/31/24 Rosuvastatin Calcium (Rosuvastatin Calcium) 20 Mg Tab, 1 TAB PO HS 10/31/24 Metformin Hydrochloride (Metformin Hcl) 500 Mg Tab, 1 TAB PO BID 10/31/24 Home Meds Home medications reviewed. Current Medications Current Medications Medications (Trade) Dose Ordered Sig/Shelley Route PRN Reason Start Time Stop Time Status Last Admin Sodium Chloride (Saline Lock Ns) 10 ml Q8HR IV 10/31/24 06:00 10/31/24 05:19 Aspirin 81 mg DAILY PO 11/01/24 10:00 Heparin Sodium/ Dextrose 250 ml @ 10 mls/hr Q24H IV 10/31/24 04:45 10/31/24 04:46 Review of Systems Constitutional: Generalized weakness, diaphoresis Ears, Nose, & Throat: No symptom reported Eyes: No symptom reported Neurological: Dizziness Pulmonary/Respiratory: No symptoms reported Cardiovascular: Chest pain Gastrointestinal: No symptom reported Genitourinary: No symptom reported Musculoskeletal: No symptom reported Skin: No symptom reported Psychiatric: No symptom reported Endocrine: No symptom reported Hematologic/Lymphatic: No symptom reported Vital Signs Vital Signs Date Time Temp Pulse Resp B/P (MAP) Pulse Ox O2 Delivery O2 Flow Rate FiO2 10/31/24 07:30 63 23 100 Nasal Cannula* 2 28 10/31/24 07:30 97.9 130/69 (89) 97.9 Physical Exam General Appearance: Cooperative. Morbidly obese Pulmonary/Respiratory: Clear, bilateral breaths sounds. Cardiovascular/Chest: Regular rate and rhythm. Peripheral Pulses: 2+ Radial (R). 2+ Radial (L). 2+ Pedal (R). 2+ Pedal (L) Abdominal Exam: Normal bowel sounds. Ankle Exam: Negative ankle edema Lower extremities: Negative lower extremity edema Neuro/Mental Status: A/OX4, coherent. Thoughts/Psych: Normal thought pattern. Appropriate mood and affect. Good judgment and insight. Appearance: No acute distress. Skin Exam: Normal inspection. Normal color. Warm and dry. Labs/Diagnostic Data Labs Test 10/31/24 08:19 10/31/24 05:33 10/31/24 04:03 10/30/24 20:10 Range/Units White Blood Count 10.1 4.4-10.8 10^3/uL Red Blood Count 3.61 L 4.0-5.20 10^6/uL Hemoglobin 10.4 L 12.2-16.2 g/dL Hematocrit 31.8 L 36.0-46.0 % Mean Corpuscular Volume 88.0 80.0-100.0 fL Mean Corpuscular Hemoglobin 28.8 28.0-32.0 pg Mean Corpuscular Hemoglobin Concent 32.7 32.0-36.0 g/dL Red Cell Distribution Width 16.4 H 11.8-14.3 % Platelet Count 262 140-450 10^3/uL Mean Platelet Volume 8.3 6.9-10.8 fL Neutrophils (%) (Auto) 62.8 37.0-80.0 % Lymphocytes (%) (Auto) 16.3 10.0-50.0 % Monocytes (%) (Auto) 10.3 0.0-12.0 % Eosinophils (%) (Auto) 9.4 H 0.0-7.0 % Basophils (%) (Auto) 1.2 0.0-2.0 % Neutrophils # (Auto) 6.4 1.6-8.6 10 ^3/uL Lymphocytes # (Auto) 1.6 0.4-5.4 10 ^3/uL Monocytes # (Auto) 1.0 0-1.3 10 ^3/uL Eosinophils # (Auto) 1.0 H 0-0.8 10 ^3/uL Basophils # (Auto) 0.1 0-0.2 10 ^3/uL Nucleated Red Blood Cells 0.0 % Hemoglobin A1c 6.6 H <5.7 % A1C Troponin I High Sensitivity 1594 *H </=34 ng/L B-Type Natriuretic Peptide 1072.33 0-100 pg/mL POC Glucose 109 H 70-106 mg/dl Prothrombin Time 11.5 9.3-11.8 sec Prothrombin Time INR 1.09 0.9-1.15 Activated Partial Thromboplast Time 40.7 H 24.5-34.5 SEC Sodium Level 142 136-145 mmol/L Potassium Level 4.2 3.5-5.1 mmol/L Chloride Level 105 98-107 mmol/L Carbon Dioxide Level 29 20-31 mmol/L Anion Gap 8 5-15 Blood Urea Nitrogen 18 9-23 mg/dL Creatinine 1.00 0.550-1.02 mg/dL Glomerular Filtration Rate Calc 59 >90 mL/min BUN/Creatinine Ratio 18.0 10.0-20.0 Serum Glucose 101 74-106 mg/dL Calcium Level 9.4 8.7-10.4 mg/dL Magnesium Level 2.0 1.6-2.6 mg/dL Total Bilirubin 0.3 0.2-1.0 mg/dL Aspartate Amino Transferase (AST) 33 13-40 U/L Alanine Aminotransferase (ALT) 15 7-40 U/L Alkaline Phosphatase 81 46-116 U/L Total Protein 7.5 5.7-8.2 g/dL Albumin 4.2 3.2-4.8 g/dL Triglycerides Level 90 < 150 mg/dL Cholesterol Level 150 < 200 mg/dL LDL Cholesterol 81 < 100 mg/dL HDL Cholesterol 54 40-59 mg/dL Thyroid Stimulating Hormone (TSH) 2.53 0.55-4.78 uIU/mL D-Dimer, Quantitative 1.26 H 0.0-0.49 mg/L FEU Assessment NSTEMI Acute on chronic decompensated HFrEF, NYHA class III Severe aortic valve stenosis status post bioprosthetic TAVR History of SVT Hypertension Dyslipidemia Pulmonary hypertension History of PE (on dabigatran) Type 2 diabetes mellitus Asthma Morbid obesity Plan/Recommendation We will continue with the following plan/recommendations (Dr. Coffman): Case discussed with . We will continue with obtaining a transthoracic echocardiogram to evaluate cardiac function. Previous transthoracic echocard iogram from 10/07/2023 reveals an EF of 40%, RVSP 60 mmHg. The patient reports undergoing a coronary angiogram with left heart catheterization last month at [place] in which no catheter based intervention was deemed necessary. The patient denies any coronary stents. CT angio negative for pulmonary embolism but reveals cardiomegaly with diffuse bilateral coarse reticular opacities as well as ground-glass attenuation throughout. We will order a COVID and rapid influenza A and B. We will stop heparin drip at this time and initiate therapeutic Lovenox given that the patient is already fluid overloaded. Continue with diuresis as tolerated. Strict intake and output, daily weights, maintain fluid restriction, and low-sodium diet. Obtain medical records from [facility]. Thank you for allowing us to care for this patient. Please call with any questions or concerns. Critical care time spent: 44 minutes This medical document was created using an electronic medical record system with voice recognition software and computerized dictation system. Although this document has been carefully reviewed, there might still be some phonetic and typographical errors. Occasional wrong-word or ``sound-alike substitutions may have occurred due to the inherent limitations of voice recognition software. These areas are purely typographical due to imperfections of the software programs and do not reflect any compromise in the patient's medical care. Please read the chart carefully and recognize, using context, where these substitutions have occurred. Plan discussed with: Patient NYHA Physical activity limitations: Class3(Marked) ordinary (activity causes symtoms) Date of Service: Oct 31, 2024 Billing Provider: TERRENCE MARIE Cardiology Common Codes: 66712-WBIUVWR INP/OBS CARE (High) Cardiology Consultation Codes: 08952-[id number] CONSULT <45MIN TERRENCE MARIE Oct 31, 2024 09:58
--- NOTE | 2024-10-31 10:35 | ECG ---
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
[2024-10-31] MEDS: FUROSEMIDE 40 MG/4 ML VIAL IV SCH (11:00)
[2024-10-31 11:11] LABS: INR 1.12 (0.9-1.15); Partial Thromboplastin Time 42.3 SEC (24.5-34.5); Prothrombin Time 11.7 sec (9.3-11.8)
[2024-10-31 11:30] LABS: Urine Protein, UAD TRACE (Negative)
[2024-10-31] MEDS ORDERED: ONDANSETRON HCL 4 MG/2 ML VIAL IV PRN (11:30)
[2024-10-31] MEDS ORDERED: NITROGLYCERIN 0.4 MG SL TAB SL PRN (11:30)
[2024-10-31] MEDS ORDERED: HEPARIN DRIP/D5W 100UNITS/ML 250 ML IV SCH (11:30)
[2024-10-31] MEDS ORDERED: DOCUSATE SOD 100 MG CAP PO PRN (11:30)
[2024-10-31] MEDS ORDERED: MORPHINE SULFATE INJ 2 MG/ml SYRG IV PRN (11:30)
[2024-10-31] MEDS ORDERED: METF-370 PO (11:35)
[2024-10-31] MEDS ORDERED: FURO40TA4 PO (11:35)
[2024-10-31] MEDS ORDERED: PRE5T PO (11:35)
[2024-10-31] MEDS ORDERED: ROSU20TA56 PO (11:35)
--- NOTE | 2024-10-31 11:35 | CONS ---
Pharmacy Clinical Information: INCREASE HEPARIN DRIP RATE TO 1200 UNITS/HR PER APTT OF 42.3 NEXT APTT DRAW SCHEDULED FOR 1730 PER RX PROTOCOL RN Brain CONFIRMED AND READ BACK Kelin Leon PHARMACIST Oct 31, 2024 11:35
[2024-10-31] MEDS ORDERED: DEXTROSE (50%) 50ML SYRG IV PRN (11:45)
--- NOTE | 2024-10-31 11:55 | DVHHP2 ---
History of Present Illness Reason for Visit: Chest pain History of Present Illness Renee Sifuentes is a 74-year-old female with past medical history of congestive heart failure, hypertension, hyperlipidemia, pulmonary hypertension, asthma, morbid obesity, and diabetes, who came to the hospital with complaints of right sided chest pain. Patient states she was having frequent chest pain for a few months. She did have severe aortic stenosis that was thought to be the problem. She had a TAVR completed about 1 month ago. She states her chest pain did improve for a little bit, but came back yesterday. She states the pain started yesterday about 1500 while she was watching TV. She states the pain is right sided, constant, and pressure-like, that radiates to her shoulders. Cardiovascular: CHF, HTN, hyperipidemia, Other (TAVR) Pulmonary: Asthma, Other (Pulmonary hypertension) RECREATION MANAGER: CVA Endocrine: Diabetes Past Surgical History: Other (TAVR), Tubal Ligation, Tonsillectomy Smoke: No ALCOHOL: none Drugs: None Lives: with Family Domestic Violence: Neg Review of Systems Allergies: Coded Allergies: NO KNOWN ALLERGIES (Unverified , 10/06/23) Medications Current Medications Medications Dose Ordered Sig/Shelley Route Start Time Stop Time Status Last Admin Dose Admin Sodium Chloride 10 ml Q8HR IV 10/31/24 06:00 10/31/24 05:19 10 ML Aspirin 81 mg DAILY PO 11/01/24 10:00 Furosemide 40 mg BIDD IV 10/31/24 10:00 Enoxaparin Sodium 110 mg Q12HR SC 10/31/24 22:00 UNV Acetaminophen/ Hydrocodone Bitart 1 tab Q4HP PRN PO 10/31/24 11:30 UNV Ondansetron HCl 4 mg Q4HP PRN IV 10/31/24 11:30 UNV Docusate Sodium 100 mg BIDPRN PRN PO 10/31/24 11:30 UNV Acetaminophen 650 mg Q6HP PRN PO 10/31/24 11:30 UNV Nitroglycerin 0.4 mg Q5MINP PRN SL 10/31/24 11:30 UNV Morphine Sulfate 2 mg Q30M PRN IV 10/31/24 11:30 UNV Exam Vital Signs Vital Signs Date Time Temp Pulse Resp B/P (MAP) Pulse Ox O2 Delivery O2 Flow Rate FiO2 10/31/24 07:30 63 23 100 Nasal Cannula* 2 28 10/31/24 07:30 97.9 130/69 (89) 97.9 Labs/Xrays Labs Test 10/31/24 11:17 10/31/24 10:55 10/31/24 10:44 10/31/24 09:56 Range/Units Urine Color Light-yellow Yellow Urine Clarity Clear Clear Urine pH 5.5 5.0-9.0 Urine Specific [place] 1.050 H 1.001-1.035 Urine Protein Trace H Negative Urine Ketones Negative Negative Urine Blood Negative Negative /uL Urine Nitrite Negative Negative Urine Bilirubin Negative Negative Urine Urobilinogen Normal Negative mg/dL Urine Leukocyte Esterase Negative Negative /uL Urine RBC 10 0 - 4 /hpf Urine Microscopic WBC 5 0-5 /HPF Urine Squamous Epithelial Cells Few <5 /hpf Urine Bacteria None seen None Seen /hpf Urine Hyaline Casts Few 0 - 2 /lpf Urine Mucus Few None Seen Urine Glucose Normal Normal mg/dL Prothrombin Time 11.7 9.3-11.8 sec Prothrombin Time INR 1.12 0.9-1.15 Activated Partial Thromboplast Time 42.3 H 24.5-34.5 SEC POC Glucose 108 H 70-106 mg/dl Test 10/31/24 08:19 10/31/24 04:03 10/30/24 20:10 Range/Units White Blood Count 10.1 4.4-10.8 10^3/uL Red Blood Count 3.61 L 4.0-5.20 10^6/uL Hemoglobin 10.4 L 12.2-16.2 g/dL Hematocrit 31.8 L 36.0-46.0 % Mean Corpuscular Volume 88.0 80.0-100.0 fL Mean Corpuscular Hemoglobin 28.8 28.0-32.0 pg Mean Corpuscular Hemoglobin Concent 32.7 32.0-36.0 g/dL Red Cell Distribution Width 16.4 H 11.8-14.3 % Platelet Count 262 140-450 10^3/uL Mean Platelet Volume 8.3 6.9-10.8 fL Neutrophils (%) (Auto) 62.8 37.0-80.0 % Lymphocytes (%) (Auto) 16.3 10.0-50.0 % Monocytes (%) (Auto) 10.3 0.0-12.0 % Eosinophils (%) (Auto) 9.4 H 0.0-7.0 % Basophils (%) (Auto) 1.2 0.0-2.0 % Neutrophils # (Auto) 6.4 1.6-8.6 10 ^3/uL Lymphocytes # (Auto) 1.6 0.4-5.4 10 ^3/uL Monocytes # (Auto) 1.0 0-1.3 10 ^3/uL Eosinophils # (Auto) 1.0 H 0-0.8 10 ^3/uL Basophils # (Auto) 0.1 0-0.2 10 ^3/uL Nucleated Red Blood Cells 0.0 % Hemoglobin A1c 6.6 H <5.7 % A1C Troponin I High Sensitivity 1594 *H </=34 ng/L B-Type Natriuretic Peptide 1072.33 0-100 pg/mL Sodium Level 142 136-145 mmol/L Potassium Level 4.2 3.5-5.1 mmol/L Chloride Level 105 98-107 mmol/L Carbon Dioxide Level 29 20-31 mmol/L Anion Gap 8 5-15 Blood Urea Nitrogen 18 9-23 mg/dL Creatinine 1.00 0.550-1.02 mg/dL Glomerular Filtration Rate Calc 59 >90 mL/min BUN/Creatinine Ratio 18.0 10.0-20.0 Serum Glucose 101 74-106 mg/dL Calcium Level 9.4 8.7-10.4 mg/dL Magnesium Level 2.0 1.6-2.6 mg/dL Total Bilirubin 0.3 0.2-1.0 mg/dL Aspartate Amino Transferase (AST) 33 13-40 U/L Alanine Aminotransferase (ALT) 15 7-40 U/L Alkaline Phosphatase 81 46-116 U/L Total Protein 7.5 5.7-8.2 g/dL Albumin 4.2 3.2-4.8 g/dL Triglycerides Level 90 < 150 mg/dL Cholesterol Level 150 < 200 mg/dL LDL Cholesterol 81 < 100 mg/dL HDL Cholesterol 54 40-59 mg/dL Thyroid Stimulating Hormone (TSH) 2.53 0.55-4.78 uIU/mL D-Dimer, Quantitative 1.26 H 0.0-0.49 mg/L FEU EXAMINATION: XY CHEST PORTABLE FINDINGS: Patient is rotated to the right. Multiple wires overlie the thorax. Cardiac silhouette is enlarged. Diffuse interstitial prominence and vascular redistribution. Questionable blunting of the right costophrenic angle. No definite pneumothorax. IMPRESSION: Limited study. Congestive type pattern with interstitial edema and possible small right pleural effusion. Correlate to exclude atypical infection. CTA Chest with intravenous contrast Findings: Pulmonary arteries: Diagnostic quality adequate for assessment of the level of the proximal subsegmental arteries. No visualized filling defect. Main pulmonary artery measures 3.6 cm in diameter. Lower neck: Unremarkable. Lungs: Diffuse coarse reticular opacities and ground-glass attenuation throughout the btvro-[id number]-left lung. Mild honeycombing possible at the right lung apex. No focal consolidation. Central airways are clear. Pleura: No effusion or pneumothorax. Heart/Vascular Structures: Mild cardiomegaly. Aortic valve replacement and multivessel coronary atherosclerosis. Aortic and branch vessel atherosclerosis without evidence of dissection. Moderate size hiatal hernia. Lymph Nodes: Multi station mediastinal and bilateral hilar lymphadenopathy. Musculoskeletal: No evidence of acute fracture. Chronic appearing T12 wedge compression deformity. Soft tissues: Unremarkable. Upper abdomen: No acute findings. Partially assessed right renal cyst. IMPRESSION: 1. No pulmonary embolism to the level of the proximal subsegmental arteries. 2. Cardiomegaly and enlarged main pulmonary artery suggesting heart failure with pulmonary artery hypertension. 3. Diffuse bilateral coarse reticular opacities throughout both lungs. A prior CTA chest from 10/07/2023 describes a similar imaging appearance, although the exam is not available for review. Interstitial lung disease is favored overt acute process such as infection. Numerous mediastinal and bilateral hilar lymph nodes are also present. Right lower extremity venous duplex Findings: The common femoral vein demonstrates appropriate compressibility and waveform variability. There is compressibility/patency of the great saphenous vein at the proximal thigh. The femoral vein demonstrates appropriate compressibility and waveform variability. The deep femoral vein demonstrates appropriate compressibility and waveform variability. The popliteal vein demonstrates appropriate compressibility and waveform variability. There is normal compressibility at the tibioperoneal trunk. Impression: 1. No left femoropopliteal venous thrombosis. SEPSIS Sepsis Screen Date sepsis recognized/suspect: Oct 31, 2024 Time Sepsis recognized/suspect: 729 Recent Procedure: No On Antibiotic Therapy: No Respiratory Rate >20: Yes Heart Rate >90: No Temp<36 C (96.8 F) or >38.3 C: No SBP <90 or MAP <65 mmHG: No New Acute Mental Status Change: No Is the patient on CPAP, BIPAP,: No Physician Orders Heparin Per Pharmacy Protocol (10/31/24 04:50) * Cardiology Consult (10/31/24 06:00) Electrocardigram (10/31/24 07:40) Insert/Manage Urinary Catheter QSHIFT (10/31/24 07:30) Furosemide Injection (Lasix Injection) (10/31/24 10:00) Covid19 Antigen Kriss (10/31/24 ) Rapid Influenza A&B (10/31/24 09:48) Obtain Mr From Other Facility (10/31/24 11:26) Enoxaparin Sodium (Lovenox) (10/31/24 22:00) Strict I & O QSHIFT (10/31/24 11:28) Daily Weight (10/31/24 11:28) Maintain Fluid Restrictions QSHIFT (10/31/24 11:28) Cardiac Diet-2gna,Lofat,Lochol (10/31/24 Lunch) PTPTT (10/31/24 17:30) Heparin Per Pharmacy Protocol (10/31/24:25) Admit (10/31/24 11:30) Code Status (10/31/24 11:30) Hydrocodone-Acet 5/325mg Tab ([place] 5/32 (10/31/24 11:30) Ondansetron Hcl (Zofran) (10/31/24 11:30) Docusate Sodium Capsule (Colace Capsule) (10/31/24 11:30) Complete Blood Count (11/01/24 04:00) Comprehensive Metabolic Panel (11/01/24 04:00) Condition: Serious (10/31/24 11:30) Acetaminophen Tablet (Tylenol Tablet) (10/31/24 11:30) Nitroglycerin Sublingual (Ntrostat Subli (10/31/24 11:30) Morphine Sulfate Injection (10/31/24 11:30) Stat Ekg For Chest Pain (10/31/24 11:30) Notify Md Of Changes From Base (10/31/24 11:30) Provider Engagement Executive For 24 Hours (10/31/24 11:30) Emergency Dysrhythmia Protocol (10/31/24 11:30) Rhythm Strips Once Every Shift (10/31/24 11:30) Oxygen By Nasal Cannula (10/31/24 11:30) Vital Signs Date Time Temp Pulse Resp B/P (MAP) Pulse Ox O2 Delivery O2 Flow Rate FiO2 10/31/24 07:30 63 23 100 Nasal Cannula* 2 28 10/31/24 07:30 97.9 63 23 130/69 (89) 100 97.9 10/31/24 05:12 98.1 130 20 128/88 (101) 97 98.1 Laboratory Tests Test 10/31/24 08:19 White Blood Count 10.1 10^3/uL (4.4-10.8) Medications Medications Dose Ordered Sig/Shelley Route Start Time Stop Time Status Last Admin Dose Admin Heparin Sodium (Porcine) 5,000 units ONCE ONCE IV 10/31/24 00:45 10/31/24 00:47 DC 10/31/24 01:02 5,000 UNITS Heparin Sodium/ Dextrose 250 ml @ 10 mls/hr Q24H IV 10/31/24 04:45 10/31/24 11:24 DC 10/31/24 04:46 10 MLS/HR Sodium Chloride 10 ml Q8HR IV 10/31/24 06:00 10/31/24 05:19 10 ML Assessment/Plan Assessment/Plan Assessment: Non-STEMI (non-ST elevated myocardial infarction), Pleural effusion, CHF, Hypertension, Diabetes, Hyperlipidemia, Asthma, Morbid obesity, Plan: Admit to Tele, Cardiology consult, Heparin drip, ECHO, IV diuretics, Accu checks Q AC&HS with sliding scale, Home medications reconciled, Plan discussed with: Patient My Orders Orders - SHABBIR ROSE Procedure Category Date Status Time Admit ADMIT 10/31/24 Transmitted 11:30 Code Status CODE 10/31/24 Transmitted 11:30 Hydrocodone-Acet PHA 10/31/24 Logged 5/325mg Tab ([place] 11:30 Ondansetron Hcl PHA 10/31/24 Logged (Zofran) 11:30 Docusate Sodium PHA 10/31/24 Logged Capsule (Colace 11:30 Complete Blood Count LAB 11/01/24 Verified 04:00 Comprehensive LAB 11/01/24 Verified Metabolic Panel 04:00 Condition: Serious [facility] 10/31/24 In Process 11:30 Acetaminophen Tablet PHA 10/31/24 Logged (Tylenol Tablet) 11:30 Nitroglycerin PHA 10/31/24 Logged Sublingual (Ntrostat 11:30 Morphine Sulfate [facility] 10/31/24 Logged Injection 11:30 Stat Ekg For Chest [facility] 10/31/24 In Process Pain 11:30 Notify Of Changes [facility] 10/31/24 In Process From Base 11:30 Provider Engagement Executive For [facility] 10/31/24 In Process 24 Hours 11:30 Emergency Dysrhythmia [facility] 10/31/24 In Process Protocol 11:30 Rhythm Strips Once [facility] 10/31/24 In Process Every Shift 11:30 Oxygen By Nasal RT 10/31/24 Transmitted Cannula 11:30 Date of Service: Oct 31, 2024 Billing Provider: SHABBIR ROSE Common Visit Codes: [id number] INP/OBS CARE (HIGH) SHABBIR ROSE Oct 31, 2024 11:55
[2024-10-31 12:06] LABS: COVID19 ANTIGEN SOFIA FIA NEGATIVE (NEGATIVE)
[2024-10-31] MEDS: ADENOSINE 6 MG/2 ML INJ IV ONE (12:06)
--- NOTE | 2024-10-31 17:45 | DVHSR ---
APPROVED REPORT EXAM: LIMITED Two-dimensional and M-mode echocardiogram with Doppler and color Doppler. Blood Pressure: 128/88 mmHg INDICATION LV Assessment Surgery/Intervention Valve Replacement: Type: TAVR RISK FACTORS Obesity: Height: 5' 4", Weight: 240 DIMENSIONS LVDd3.7 (3.8-5.7cm)LA (2D)4.3 (1.9-4.0cm)Aortic Root2.3 (2.0-3.7cm) LVDs3.4 (2.5-4.0cm)LA (MM) (1.9-4.0cm)Aortic Cusp Exc (1.5-2.0cm) EF (%) 25.0 (55-70%)Rt. Atrium4.5 (1.9-4.0cm)Asc. Aorta cm IVSd1.3 (0.7-1.1cm)RV (D) (1.8-2.4cm) PWd1.3 (0.7-1.1cm) Mitral Valve MitralMitral Stenosis E wave1.70m/sMV Mean GR.7mmHg A wavem/sMV Peak GR.12mmHg E/A ratio0.02D MVA1.50cm2 DECEL [employer]emsPRESS 1/2 [id number] IVRTmsDop MVA3.63cm2 Aortic Valve Aortic ValveAortic Stenosis V10.80m/Abad Mean GR.5mmHg V21.50m/Abad Peak GR.9mmHg Tricuspid Valve TR Velocity3.30m/s [id number] Other Information Quality : Technically LimitedRhythm : Atrial Fibrillation Technically limited study due to patient position, patient can not turn on side. Conclusion Technically good study. Sinus rhythm. Biatrial enlargement. Concentric LVH. Heavy mitral annular calcification. Diminished excursion of the posterior mitral leaflet. Calcifica tion and immobility of the posterior mitral leaflet. There is a degree of mitral stenosis. Planimet ry reveals a valve area of 1.5 cm2. There is moderate pulmonic valve sclerosis. There appears to be a TAVR valve present. Left ventricular function is mildly diminished. Abnormal septal motion due to bundle branch block. EF is approximately 45-50% with normal RV function. Moderate tricuspid regurgitation with a right ventricular systolic [id number] mmHg. There is a peak gradient across the mitral valve of 12 with a mean gradient of7 mmHg. This also yields a valve area 1.5 cm2 consistent with planimetry. Pressure half-time across the mitral valve is 61 milliseconds. No pericardial effusion masses or vegetations.
[2024-10-31] MEDS: InsuLIN REG 1unit/0.01ml Soln (100units/ml) SC SCH ×2 (17:54→22:00)
[2024-10-31] MEDS: ACCU-CHEK COMFORT CURVE STRIP VI SCH (17:54)
[2024-10-31 20:15] VITALS: RESP 21; O2SAT 100
[2024-10-31 21:53] VITALS: BP 139/68; PULSE 72; RESP 16; TEMP 98.2; O2SAT 99
[2024-10-31 22:00] VITALS: BP 139/68; PULSE 72; RESP 16; TEMP 98.2; O2SAT 99
[2024-10-31] MEDS: ATORVASTATIN 20 MG TAB PO SCH (22:00)
[2024-10-31] MEDS: ENOXAPARIN SOD 120 MG/0.8 ML SYRINGE SC SCH (22:00)
[2024-10-31 22:46] VITALS: PULSE 72; RESP 16; O2SAT 99
[2024-11-01 06:29] LABS: Hematocrit 32.7 % (36.0-46.0); Hemoglobin 10.7 g/dL (12.2-16.2); Mean Corpuscular Hemoglobin 28.9 pg (28.0-32.0); Mean Corpuscular Volume 88.1 fL (80.0-100.0); Nucleated Red Blood Cells % 0.1 %
[2024-11-01 06:54] LABS: Alanine Aminotransferase 15 U/L (7-40); Alkaline Phosphatase 80 U/L (46-116); Anion Gap 8 (5-15); BUN/Creatinine Ratio 18.6 (10.0-20.0); Blood Urea Nitrogen 18 mg/dL (9-23); Calcium 9.4 mg/dL (8.7-10.4); Carbon Dioxide 33 mmol/L (20-31); Chloride 100 mmol/L (98-107); Glucose 119 mg/dL (74-106); Potassium 3.7 mmol/L (3.5-5.1); Sodium 141 mmol/L (136-145); Total Protein 7.6 g/dL (5.7-8.2)
[2024-11-01 06:55] LABS: Albumin 4.0 g/dL (3.2-4.8); Bilirubin, Total 0.6 mg/dL (0.2-1.0)
[2024-11-01 08:00] VITALS: PULSE 69
--- NOTE | 2024-11-01 10:55 | ECG ---
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
--- NOTE | 2024-11-01 11:02 | DVHPN2 ---
Consult Progress Note Subjective Other Systems: Patient is in normal sinus rhythm with first degree conduction delay on cardiac exercise physiologist. Patient denies any cardiac symptoms at time of assessment. Patient upset at time of assessment and states that she was unable to sleep last night. Objective vital signs Vital Sign Date Time Temp Pulse Resp B/P (MAP) Pulse Ox O2 Delivery O2 Flow Rate FiO2 11/01/24 08:20 Nasal Cannula* 2 28 10/31/24 22:46 72 16 99 10/31/24 22:00 98.2 139/68 (91) 98.2 Total Intake and Output 10/31/24 10/31/24 11/01/24 15:00 23:00 07:00 Intake Total 30 ml 400 ml Output Total 500 ml Balance 30 ml -100 ml medications Current Medications Medications Dose Ordered Sig/Shelley Route Start Time Stop Time Status Last Admin Dose Admin Sodium Chloride 10 ml Q8HR IV 10/31/24 06:00 11/01/24 06:00 10 ML Aspirin 81 mg DAILY PO 11/01/24 10:00 11/01/24 09:33 81 MG Furosemide 40 mg BIDD IV 10/31/24 10:00 10/31/24 18:28 40 MG Enoxaparin Sodium 110 mg Q12HR SC 10/31/24 22:00 11/01/24 09:33 110 MG Acetaminophen/ Hydrocodone Bitart 1 tab Q4HP PRN PO 10/31/24 11:30 Ondansetron HCl 4 mg Q4HP PRN IV 10/31/24 11:30 Hold Docusate Sodium 100 mg BIDPRN PRN PO 10/31/24 11:30 Acetaminophen 650 mg Q6HP PRN PO 10/31/24 11:30 Nitroglycerin 0.4 mg Q5MINP PRN SL 10/31/24 11:30 Morphine Sulfate 2 mg Q30M PRN IV 10/31/24 11:30 Prednisone 5 mg DAILY PO 11/01/24 10:00 11/01/24 09:33 5 MG Atorvastatin Calcium 40 mg HS PO 10/31/24 22:00 Diagnostic Test (Pha) 1 strip ACHS 10/31/24 17:00 10/31/24 17:54 1 STRIP Insulin Human Regular HS SC 10/31/24 22:00 Insulin Human Regular AC SC 10/31/24 17:00 Dextrose 50 ml UD PRN IV 10/31/24 11:45 Examination: GENERAL:Normal, LUNGS:Normal, CVS:Normal, NEURO:Normal laboratory and microbiology Laboratory Tests 11/01/24 05:28 Test 11/01/24 05:28 Range/Units Serum Glucose 119 H 74-106 mg/dL Problem List/Assessment/Plan Problem List/Assessment/Plan NSTEMI Acute on chronic decompensated HFmrEF, NYHA class III Severe aortic valve stenosis status post bioprosthetic TAVR History of SVT Hypertension Dyslipidemia Moderate tricuspid valve regurgitation Pulmonary hypertension History of PE (on dabigatran) Type 2 diabetes mellitus Asthma Morbid obesity Plan/Recommendations (Dr. Coffman): Case discussed with . A transthoracic echocardiogram done on this admission reveals an EF of 45-50%, RVSP 42 mmHg. Previous transthoracic echocardiogram from 10/07/2023 reveals an EF of 40%. CT angio negative for pulmonary embolism but reveals cardiomegaly with diffuse bilateral coarse reticular opacities as well as ground-glass attenuation throughout. Continue with diuresis as tolerated. Strict intake and output, daily weights, maintain fluid restriction, and low-sodium diet. The patient reports undergoing a coronary angiogram with left heart catheterization last month at [facility] in which no catheter based intervention was deemed necessary. The patient denies any coronary stents. We will request medical records from [facility] facility to confirm previous angiogram. We can consider coronary angiogram with left heart catheterization at this facility if no previous coronary angiogram was done. Thank you for allowing us to care for this patient. Please call with any questions or concerns. This medical document was created using an electronic medical record system with voice recognition software and computerized dictation system. Although this document has been carefully reviewed, there might still be some phonetic and typographical errors. Occasional wrong-word or ``sound-alike substitutions may have occurred due to the inherent limitations of voice recognition software. These areas are purely typographical due to imperfections of the software programs and do not reflect any compromise in the patient's medical care. Please read the chart carefully and recognize, using context, where these substitutions have occurred. Plan discussed with: Patient Date of Service: Nov 01, 2024 Billing Provider: TERRENCE MARIE Common Visit Codes: [id number] INP/OBS CARE(HIGH) TERRENCE MARIE Nov 01, 2024 11:02
--- NOTE | 2024-11-01 15:31 | DVHPN2 ---
Progress Note Date Seen: Nov 01, 2024 Medical Necessity Reason Pt with a Central, PICC or Fol: Yes The following are medically ne: Patterson Catheter Reason for patterson catheter: Strict I&O Subjective Patient reports: No new complaints Review of Systems: HEENT:Normal, CVS:Normal, RESPIRATORY:Normal, GI:Normal, :Normal, MSK:Normal, NEURO:Normal Objective vital signs Vital Sign Date Time Temp Pulse Resp B/P (MAP) Pulse Ox O2 Delivery O2 Flow Rate FiO2 11/01/24 08:20 Nasal Cannula* 2 28 10/31/24 22:46 72 16 99 10/31/24 22:00 98.2 139/68 (91) 98.2 Total Intake and Output 10/31/24 10/31/24 11/01/24 15:00 23:00 07:00 Intake Total 30 ml 400 ml Output Total 500 ml Balance 30 ml -100 ml medications Current Medications Medications Dose Ordered Sig/Shelley Route Start Time Stop Time Status Last Admin Dose Admin Sodium Chloride 10 ml Q8HR IV 10/31/24 06:00 11/01/24 06:00 10 ML Aspirin 81 mg DAILY PO 11/01/24 10:00 11/01/24 09:33 81 MG Furosemide 40 mg BIDD IV 10/31/24 10:00 10/31/24 18:28 40 MG Enoxaparin Sodium 110 mg Q12HR SC 10/31/24 22:00 11/01/24 09:33 110 MG Acetaminophen/ Hydrocodone Bitart 1 tab Q4HP PRN PO 10/31/24 11:30 Ondansetron HCl 4 mg Q4HP PRN IV 10/31/24 11:30 Hold Docusate Sodium 100 mg BIDPRN PRN PO 10/31/24 11:30 Acetaminophen 650 mg Q6HP PRN PO 10/31/24 11:30 Nitroglycerin 0.4 mg Q5MINP PRN SL 10/31/24 11:30 Morphine Sulfate 2 mg Q30M PRN IV 10/31/24 11:30 Prednisone 5 mg DAILY PO 11/01/24 10:00 11/01/24 09:33 5 MG Atorvastatin Calcium 40 mg HS PO 10/31/24 22:00 Diagnostic Test (Pha) 1 strip ACHS 10/31/24 17:00 10/31/24 17:54 1 STRIP Insulin Human Regular HS SC 10/31/24 22:00 Insulin Human Regular AC SC 10/31/24 17:00 Dextrose 50 ml UD PRN IV 10/31/24 11:45 Examination: GENERAL:Normal, HEENT:Normal, NECK:Normal, LUNGS:Normal, LUNGS:Abnormal (rales), CVS:Normal, ABDOMEN:Normal, MSK:Normal, SKIN:Normal, NEURO:Normal, :Normal laboratory and microbiology Laboratory Tests 11/01/24 05:28 Test 11/01/24 05:28 Range/Units Serum Glucose 119 H 74-106 mg/dL Problem List/Assessment/Plan Problem List/Assessment/Plan #1 acute on chronic systolic/diastolic heart failure: lasix iv #2 nstemi: per cardiology #3 asthma #4 h/o pe #5 h/o tavr #6 morbid obesity #7 htn #8 dm: ssi #9 hyperlipidemia #10 h/o svt advance care planning- full code- time spent 19 mins Plan discussed with: Patient My Orders My Orders Orders - DARRYN HORTON MD Procedure Category Date Status Time Montelukast Tablet PHA 11/01/24 Verified (Singulair Tablet) 22:00 Pt Request For Service PT 11/01/24 Verified 15:25 Basic Metabolic Panel LAB 11/02/24 Verified 06:00 Magnesium LAB 11/02/24 Verified 05:00 Complete Blood Count LAB 11/02/24 Verified 06:00 Chest Portable XY 11/02/24 Verified 06:00 Date of Service: Nov 01, 2024 Billing Provider: DARRYN HORTON MD Common Visit Codes: [id number] INP/OBS CARE(HIGH) Secondary Visit Codes: [id number] CARE PLAN 30 MINUTES DARRYN HORTON MD Nov 01, 2024 15:31
[2024-11-01 16:57] VITALS: BP 131/60; PULSE 71; RESP 18; TEMP 98.6; O2SAT 98
[2024-11-01 21:00] VITALS: BP 132/61; PULSE 76; RESP 22; TEMP 98.3; O2SAT 98
[2024-11-01] MEDS: MONTELUKAST SODIUM 10 MG TAB PO SCH (22:43)
[2024-11-01 22:46] VITALS: PULSE 75; RESP 18; O2SAT 97
[2024-11-02] VITALS (7 sets, daily range): BP systolic 110–136; BP diastolic 47–85; PULSE 72–83; RESP 18–20; TEMP 96.1–98.4; O2SAT 98–99
--- NOTE | 2024-11-02 05:17 | DVH ---
CHEST RADIOGRAPH Indication: chf Technique: Single frontal view of the chest was obtained COMPARISON: CT CT ANGIO CHEST CONTRAST on DOS: 10/30/24, XY CHEST PORTABLE on DOS: 10/30/24, CT CT TESS O CHEST CONTRAST on DOS: 10/07/23, XY CHEST PORTABLE on DOS: 10/06/23 FINDINGS: Lines and Tubes: None Lungs: Congestion Pleura: No effusion. No pneumothorax. Cardiomediastinal contours: Cardiomegaly Bones: Unremarkable IMPRESSION: Unchanged pulmonary vascular congestion
[2024-11-02 10:32] LABS: Chloride 99 mmol/L (98-107); Potassium 3.9 mmol/L (3.5-5.1); Sodium 140 mmol/L (136-145)
[2024-11-02 10:33] LABS: Anion Gap 9 (5-15); Calcium 9.4 mg/dL (8.7-10.4)
[2024-11-02 10:38] LABS: BUN/Creatinine Ratio 22.4 (10.0-20.0); Blood Urea Nitrogen 19 mg/dL (9-23); Hematocrit 35.5 % (36.0-46.0); Magnesium 2.0 mg/dL (1.6-2.6); Mean Corpuscular Hemoglobin 28.7 pg (28.0-32.0); Mean Corpuscular Volume 89.9 fL (80.0-100.0); Nucleated Red Blood Cells % 0.1 %
[2024-11-02 10:48] LABS: Carbon Dioxide 32 mmol/L (20-31); Glucose 113 mg/dL (74-106)
[2024-11-02 11:17] LABS: Hemoglobin 11.3 g/dL (12.2-16.2)
--- NOTE | 2024-11-02 12:42 | DVHPN2 ---
Reviewed: Care Plan, H&P, Labs, Medications, Previous Orders, Radiology Changes from previous H/P or p: No Changes Objective Vitals Vital Signs Date Time Temp Pulse Resp B/P (MAP) Pulse Ox O2 Delivery O2 Flow Rate FiO2 11/02/24 09:00 98.4 72 18 136/65 (88) 98 98.4 11/01/24 22:46 Nasal Cannula* 2 28 Intake/Output Intake and Output 11/02/24 07:00 Intake Total 1300 ml Output Total 2150 ml Balance -850 ml Intake Oral 1300 ml Output Urine Total 2150 ml Medications Current Medications Medications Dose Ordered Sig/Shelley Route Start Time Stop Time Status Last Admin Dose Admin Sodium Chloride 10 ml Q8HR IV 10/31/24 06:00 11/02/24 06:18 10 ML Aspirin 81 mg DAILY PO 11/01/24 10:00 11/02/24 10:00 81 MG Furosemide 40 mg BIDD IV 10/31/24 10:00 11/02/24 06:19 40 MG Enoxaparin Sodium 110 mg Q12HR SC 10/31/24 22:00 11/02/24 10:00 110 MG Acetaminophen/ Hydrocodone Bitart 1 tab Q4HP PRN PO 10/31/24 11:30 Ondansetron HCl 4 mg Q4HP PRN IV 10/31/24 11:30 Hold Docusate Sodium 100 mg BIDPRN PRN PO 10/31/24 11:30 Acetaminophen 650 mg Q6HP PRN PO 10/31/24 11:30 Nitroglycerin 0.4 mg Q5MINP PRN SL 10/31/24 11:30 Morphine Sulfate 2 mg Q30M PRN IV 10/31/24 11:30 Prednisone 5 mg DAILY PO 11/01/24 10:00 11/02/24 10:00 5 MG Atorvastatin Calcium 40 mg HS PO 10/31/24 22:00 11/01/24 22:43 40 MG Diagnostic Test (Pha) 1 strip ACHS 10/31/24 17:00 11/02/24 06:19 1 STRIP Insulin Human Regular HS SC 10/31/24 22:00 11/01/24 22:00 4 UNITS Insulin Human Regular AC SC 10/31/24 17:00 11/02/24 06:19 2 UNITS Dextrose 50 ml UD PRN IV 10/31/24 11:45 Montelukast Sodium 10 mg HS PO 11/01/24 22:00 11/01/24 22:43 10 MG Laboratory Results Laboratory Tests 11/02/24 09:19 Chemistry Test 11/02/24 09:19 Calcium Level 9.4 mg/dL (8.7-10.4) Magnesium Level 2.0 mg/dL (1.6-2.6) Urinalysis Test 10/31/24 10:55 Urine Color Light-yellow (Yellow) Urine Clarity Clear (Clear) Urine pH 5.5 (5.0-9.0) Urine Specific [place] 1.050 (1.001-1.035) Urine Protein Trace (Negative) H Urine Ketones Negative (Negative) Urine Blood Negative /uL (Negative) Urine Nitrite Negative (Negative) Urine Bilirubin Negative (Negative) Urine Urobilinogen Normal mg/dL (Negative) Urine Leukocyte Esterase Negative /uL (Negative) Urine RBC 10 /hpf (0 - 4) Urine Microscopic WBC 5 /HPF (0-5) Urine Squamous Epithelial Cells Few /hpf (<5) Urine Bacteria None seen /hpf (None Seen) Urine Hyaline Casts Few /lpf (0 - 2) Urine Mucus Few (None Seen) Urine Glucose Normal mg/dL (Normal) Labs and/or images reviewed: Labs reviewed by me, Image(s) reviewed by me Assessment/Plan Assessment/Plan Covering for Dr. Rodríguez #1 acute on chronic systolic/diastolic heart failure: lasix iv #2 nstemi: per cardiology #3 asthma #4 h/o pe #5 h/o tavr #6 morbid obesity #7 htn #8 dm: ssi #9 hyperlipidemia #10 h/o svt #11 PE ruled out Left heart Catheterization one month ago at [facility] was negative Time spent 70 minutes Advanced care planning time 20 minutes Patient is full code Continue Current management Plan discussed with: Patient Date of Service: Nov 02, 2024 Billing Provider: OLENA IBRAHIM MD Common Visit Codes: [id number] CARE 30-74 MIN OLENA IBRAHIM MD Nov 02, 2024 12:42
--- NOTE | 2024-11-02 16:09 | DVHPN2 ---
Consult Progress Note Subjective Other Systems: Patient in normal sinus rhythm with first-degree conduction delay at time of assessment. power lineworker reviewed, nonsustained episodes of bradycardia noted. Objective vital signs Vital Sign Date Time Temp Pulse Resp B/P (MAP) Pulse Ox O2 Delivery O2 Flow Rate FiO2 11/02/24 13:00 97.0 79 20 110/47 (68) 98 97.0 11/02/24 08:00 Nasal Cannula* 2 28 Total Intake and Output 11/01/24 11/01/24 11/02/24 15:00 23:00 07:00 Intake Total 800 ml 500 ml Output Total 400 ml 1750 ml Balance 400 ml -1250 ml medications Current Medications Medications Dose Ordered Sig/Shelley Route Start Time Stop Time Status Last Admin Dose Admin Sodium Chloride 10 ml Q8HR IV 10/31/24 06:00 11/02/24 14:17 10 ML Aspirin 81 mg DAILY PO 11/01/24 10:00 11/02/24 10:00 81 MG Furosemide 40 mg BIDD IV 10/31/24 10:00 11/02/24 06:19 40 MG Acetaminophen/ Hydrocodone Bitart 1 tab Q4HP PRN PO 10/31/24 11:30 Ondansetron HCl 4 mg Q4HP PRN IV 10/31/24 11:30 Hold Docusate Sodium 100 mg BIDPRN PRN PO 10/31/24 11:30 Acetaminophen 650 mg Q6HP PRN PO 10/31/24 11:30 Nitroglycerin 0.4 mg Q5MINP PRN SL 10/31/24 11:30 Morphine Sulfate 2 mg Q30M PRN IV 10/31/24 11:30 Prednisone 5 mg DAILY PO 11/01/24 10:00 11/02/24 10:00 5 MG Atorvastatin Calcium 40 mg HS PO 10/31/24 22:00 11/01/24 22:43 40 MG Diagnostic Test (Pha) 1 strip ACHS 10/31/24 17:00 11/02/24 11:30 1 STRIP Insulin Human Regular HS SC 10/31/24 22:00 11/01/24 22:00 4 UNITS Insulin Human Regular AC SC 10/31/24 17:00 11/02/24 06:19 2 UNITS Dextrose 50 ml UD PRN IV 10/31/24 11:45 Montelukast Sodium 10 mg HS PO 11/01/24 22:00 11/01/24 22:43 10 MG Enoxaparin Sodium 40 mg DAILY SC 11/03/24 10:00 Examination: GENERAL:Normal, LUNGS:Normal, CVS:Normal, NEURO:Normal laboratory and microbiology Laboratory Tests 11/02/24 09:19 Test 11/02/24 09:19 Range/Units Serum Glucose 113 H 74-106 mg/dL Problem List/Assessment/Plan Problem List/Assessment/Plan NSTEMI Acute on chronic decompensated HFmrEF, NYHA class III Severe aortic valve stenosis status post bioprosthetic TAVR History of SVT Hypertension Dyslipidemia Moderate tricuspid valve regurgitation Pulmonary hypertension History of PE (on dabigatran) Type 2 diabetes mellitus Asthma Morbid obesity Plan/Recommendations (Dr. Coffman): Case discussed with . A transthoracic echocardiogram done on this admission reveals an EF of 45-50%, RVSP 42 mmHg. Previous transthoracic echocardiogram from 10/07/2023 reveals an EF of 40%. Continue with guideline directed medical therapy for CHF as tolerated. For HFmrEF patients, diuretics are class 1 indication as needed. SGLT2i are class 2a, we will initiate Jardiance therapy. ACEi/ARB/ARNI and MRA considered class 2b, initiate if deemed beneficial. CT angio negative for pulmonary embolism but reveals cardiomegaly with diffuse bilateral coarse reticular opacities as well as ground-glass attenuation throughout. Chest x-ray done today (11/02/24) reveals unchanged pulmonary vascular congestion. We will increase Lasix dose. Continue with strict intake and output, daily weights, maintain fluid restriction, and low-sodium diet. The patient's daughter, Kate called [facility] and confirmed with cardiology PA that the patient underwent a coronary angiogram with left heart catheterization earlier this year without any catheter based intervention. Continue with medical management. Continue with close cardiac surveillance. Thank you for allowing us to care for this patient. Please call with any questions or concerns. This medical document was created using an electronic medical record system with voice recognition software and computerized dictation system. Although this document has been carefully reviewed, there might still be some phonetic and typographical errors. Occasional wrong-word or ``sound-alike substitutions may have occurred due to the inherent limitations of voice recognition software. These areas are purely typographical due to imperfections of the software programs and do not reflect any compromise in the patient's medical care. Please read the chart carefully and recognize, using context, where these substitutions have occurred. Plan discussed with: Patient, Daughter Date of Service: Nov 02, 2024 Billing Provider: TERRENCE MARIE Common Visit Codes: [id number] INP/OBS CARE(HIGH) TERRENCE MARIE Nov 02, 2024 16:09
[2024-11-02] MEDS: FUROSEMIDE 40 MG/4 ML VIAL IV SCH (18:03)
[2024-11-02] MEDS: HYDROcodone-ACET 5/325MG TAB PO PRN (23:07)
[2024-11-03] VITALS (8 sets, daily range): BP systolic 117–141; BP diastolic 69–82; PULSE 68–83; RESP 16–19; TEMP 97.9–98.2; O2SAT 97–100
[2024-11-03 07:01] LABS: Chloride 99 mmol/L (98-107); Sodium 141 mmol/L (136-145)
[2024-11-03 07:02] LABS: Anion Gap 8 (5-15); Calcium 9.4 mg/dL (8.7-10.4)
[2024-11-03 07:05] LABS: Carbon Dioxide 34 mmol/L (20-31); Potassium 3.4 mmol/L (3.5-5.1)
[2024-11-03 07:07] LABS: BUN/Creatinine Ratio 20.8 (10.0-20.0); Blood Urea Nitrogen 20 mg/dL (9-23); Glucose 100 mg/dL (74-106)
[2024-11-03 07:09] LABS: Hematocrit 31.9 % (36.0-46.0); Hemoglobin 10.7 g/dL (12.2-16.2); Mean Corpuscular Hemoglobin 29.2 pg (28.0-32.0); Mean Corpuscular Volume 87.2 fL (80.0-100.0); Nucleated Red Blood Cells % 0.0 %
--- NOTE | 2024-11-03 08:10 | DVHPN2 ---
Reviewed: Care Plan, H&P, Labs, Medications, Previous Orders, Radiology Changes from previous H/P or p: No Changes Objective Vitals Vital Signs Date Time Temp Pulse Resp B/P (MAP) Pulse Ox O2 Delivery O2 Flow Rate FiO2 11/03/24 06:24 139/81 11/03/24 05:00 98.0 68 19 100 98.0 11/02/24 20:00 Nasal Cannula* 2 28 Intake/Output Intake and Output 11/03/24 07:00 Intake Total 1040 ml Output Total 2225 ml Balance -1185 ml Intake Oral 1040 ml Output Urine Total 2225 ml Medications Current Medications Medications Dose Ordered Sig/Shelley Route Start Time Stop Time Status Last Admin Dose Admin Sodium Chloride 10 ml Q8HR IV 10/31/24 06:00 11/03/24 06:24 10 ML Aspirin 81 mg DAILY PO 11/01/24 10:00 11/02/24 10:00 81 MG Acetaminophen/ Hydrocodone Bitart 1 tab Q4HP PRN PO 10/31/24 11:30 11/02/24 23:07 1 TAB Ondansetron HCl 4 mg Q4HP PRN IV 10/31/24 11:30 Hold Docusate Sodium 100 mg BIDPRN PRN PO 10/31/24 11:30 Acetaminophen 650 mg Q6HP PRN PO 10/31/24 11:30 Nitroglycerin 0.4 mg Q5MINP PRN SL 10/31/24 11:30 Morphine Sulfate 2 mg Q30M PRN IV 10/31/24 11:30 Prednisone 5 mg DAILY PO 11/01/24 10:00 11/02/24 10:00 5 MG Atorvastatin Calcium 40 mg HS PO 10/31/24 22:00 11/02/24 21:09 40 MG Diagnostic Test (Pha) 1 strip ACHS 10/31/24 17:00 11/03/24 06:25 1 STRIP Insulin Human Regular HS SC 10/31/24 22:00 11/02/24 21:11 6 UNITS Insulin Human Regular AC SC 10/31/24 17:00 11/02/24 17:00 9 UNITS Dextrose 50 ml UD PRN IV 10/31/24 11:45 Montelukast Sodium 10 mg HS PO 11/01/24 22:00 11/02/24 21:09 10 MG Enoxaparin Sodium 40 mg DAILY SC 11/03/24 10:00 Furosemide 60 mg BIDD IV 11/02/24 18:00 11/03/24 06:24 60 MG Empaglifozin 10 mg DAILY PO 11/03/24 10:00 Laboratory Results Laboratory Tests 11/03/24 05:39 Chemistry Test 11/02/24 09:19 11/03/24 05:39 Calcium Level 9.4 mg/dL (8.7-10.4) 9.4 mg/dL (8.7-10.4) Magnesium Level 2.0 mg/dL (1.6-2.6) Cardiac Markers Test 11/02/24 09:19 B-Type Natriuretic Peptide 384.78 pg/mL (0-100) Urinalysis Test 10/31/24 10:55 Urine Color Light-yellow (Yellow) Urine Clarity Clear (Clear) Urine pH 5.5 (5.0-9.0) Urine Specific [place] 1.050 (1.001-1.035) Urine Protein Trace (Negative) H Urine Ketones Negative (Negative) Urine Blood Negative /uL (Negative) Urine Nitrite Negative (Negative) Urine Bilirubin Negative (Negative) Urine Urobilinogen Normal mg/dL (Negative) Urine Leukocyte Esterase Negative /uL (Negative) Urine RBC 10 /hpf (0 - 4) Urine Microscopic WBC 5 /HPF (0-5) Urine Squamous Epithelial Cells Few /hpf (<5) Urine Bacteria None seen /hpf (None Seen) Urine Hyaline Casts Few /lpf (0 - 2) Urine Mucus Few (None Seen) Urine Glucose Normal mg/dL (Normal) Labs and/or images reviewed: Labs reviewed by me, Image(s) reviewed by me Assessment/Plan Assessment/Plan Covering for Dr. Rodríguez #1 acute on chronic systolic/diastolic heart failure: lasix iv #2 nstemi: per cardiology #3 asthma #4 h/o pe #5 h/o tavr #6 morbid obesity #7 htn #8 dm: ssi #9 hyperlipidemia #10 h/o svt #11 PE ruled out Dysuria: Urinalysis urine cultures Left heart Catheterization one month ago at [facility] was negative Time spent 50 minutes Advanced care planning time 20 minutes Patient is full code Continue Current management Plan discussed with: Patient Date of Service: Nov 03, 2024 Billing Provider: OLENA IBRAHIM MD Common Visit Codes: [id number] INP/OBS CARE(HIGH) OLENA IBRAHIM MD Nov 03, 2024 08:10
[2024-11-03] MEDS: ENOXAPARIN SOD 40 MG/0.4 ML SYRINGE SC SCH (09:24)
[2024-11-03] MEDS: EMPAGLIFLOZIN 10 MG TAB PO SCH (09:24)
[2024-11-03 10:48] LABS: Urine Protein, UAD 2+ (Negative); Urine WBC Clumps PRESENT /hpf (None Seen)
[2024-11-04] VITALS (8 sets, daily range): BP systolic 128–155; BP diastolic 69–97; PULSE 39–85; RESP 17–20; TEMP 97.6–98.5; O2SAT 95–100
--- NOTE | 2024-11-04 08:22 | DVHPN2 ---
Reviewed: Care Plan, H&P, Labs, Medications, Previous Orders, Radiology Changes from previous H/P or p: No Changes Objective Vitals Vital Signs Date Time Temp Pulse Resp B/P (MAP) Pulse Ox O2 Delivery O2 Flow Rate FiO2 11/04/24 06:31 138/72 11/04/24 05:00 98.1 62 18 99 98.1 11/03/24 20:00 Nasal Cannula* 2 28 Intake/Output Intake and Output 11/04/24 07:00 Intake Total 1050 ml Output Total 2550 ml Balance -1500 ml Intake Oral 1050 ml Output Urine Total 2550 ml Medications Current Medications Medications Dose Ordered Sig/Shelley Route Start Time Stop Time Status Last Admin Dose Admin Sodium Chloride 10 ml Q8HR IV 10/31/24 06:00 11/04/24 06:32 10 ML Aspirin 81 mg DAILY PO 11/01/24 10:00 11/03/24 09:23 81 MG Acetaminophen/ Hydrocodone Bitart 1 tab Q4HP PRN PO 10/31/24 11:30 11/04/24 05:00 1 TAB Ondansetron HCl 4 mg Q4HP PRN IV 10/31/24 11:30 Hold Docusate Sodium 100 mg BIDPRN PRN PO 10/31/24 11:30 Acetaminophen 650 mg Q6HP PRN PO 10/31/24 11:30 Nitroglycerin 0.4 mg Q5MINP PRN SL 10/31/24 11:30 Morphine Sulfate 2 mg Q30M PRN IV 10/31/24 11:30 Prednisone 5 mg DAILY PO 11/01/24 10:00 11/03/24 09:25 5 MG Atorvastatin Calcium 40 mg HS PO 10/31/24 22:00 11/03/24 21:13 40 MG Diagnostic Test (Pha) 1 strip ACHS 10/31/24 17:00 11/04/24 06:32 1 STRIP Insulin Human Regular HS SC 10/31/24 22:00 11/03/24 21:14 6 UNITS Insulin Human Regular AC SC 10/31/24 17:00 11/04/24 06:33 2 UNITS Dextrose 50 ml UD PRN IV 10/31/24 11:45 Montelukast Sodium 10 mg HS PO 11/01/24 22:00 11/03/24 21:12 10 MG Enoxaparin Sodium 40 mg DAILY SC 11/03/24 10:00 11/03/24 09:24 40 MG Furosemide 60 mg BIDD IV 11/02/24 18:00 11/04/24 06:31 60 MG Empaglifozin 10 mg DAILY PO 11/03/24 10:00 Laboratory Results Laboratory Tests 11/03/24 05:39 Urinalysis Test 10/31/24 10:55 11/03/24 09:35 Urine Hyaline Casts Few /lpf (0 - 2) Urine Color Colorless (Yellow) Urine Clarity Turbid (Clear) H Urine pH 7.5 (5.0-9.0) Urine Specific [place] 1.012 (1.001-1.035) Urine Protein 2+ (Negative) H Urine Ketones Negative (Negative) Urine Blood 3+ /uL (Negative) H Urine Nitrite Negative (Negative) Urine Bilirubin Negative (Negative) Urine Urobilinogen Normal mg/dL (Negative) Urine Leukocyte Esterase 3+ /uL (Negative) Urine RBC 417 /hpf (0 - 4) Urine WBC Clumps Present /hpf (None Seen) Urine Microscopic WBC 407 /HPF (0-5) H Urine Squamous Epithelial Cells Few /hpf (<5) Urine Triple Phosphate Crystals Few /hpf (None Seen) Urine Bacteria Few /hpf (None Seen) H Urine Mucus Few (None Seen) Urine Glucose Normal mg/dL (Normal) Labs and/or images reviewed: Labs reviewed by me, Image(s) reviewed by me Assessment/Plan Assessment/Plan Covering for Dr. Rodríguez #1 acute on chronic systolic/diastolic heart failure: lasix iv #2 nstemi: per cardiology #3 asthma #4 h/o pe #5 h/o tavr #6 morbid obesity #7 htn #8 dm: ssi #9 hyperlipidemia #10 h/o svt #11 PE ruled out # 12 Acute urinary tract infection: Rocephin 1 g IV daily, urine cultures pending Left heart Catheterization one month ago at [place] was negative Time spent 50 minutes Advanced care planning time 20 minutes Patient is full code Continue Current management Plan discussed with: Patient, Other (RN Mira at bed side) Date of Service: Nov 04, 2024 Billing Provider: OLENA IBRAHIM MD Common Visit Codes: [id number] INP/OBS CARE(HIGH) OLENA IBRAHIM MD Nov 04, 2024 08:22
--- NOTE | 2024-11-04 11:24 | DVHPN2 ---
Consult Progress Note Subjective Patient reports: No new complaints, Feels better Objective vital signs Vital Sign Date Time Temp Pulse Resp B/P (MAP) Pulse Ox O2 Delivery O2 Flow Rate FiO2 11/04/24 08:00 Nasal Cannula* 2 28 11/04/24 06:31 138/72 11/04/24 05:00 98.1 62 18 99 98.1 Total Intake and Output 11/03/24 11/03/24 11/04/24 15:00 23:00 07:00 Intake Total 400 ml 650 ml Output Total 1400 ml 1150 ml Balance -1000 ml -500 ml medications Current Medications Medications Dose Ordered Sig/Shelley Route Start Time Stop Time Status Last Admin Dose Admin Sodium Chloride 10 ml Q8HR IV 10/31/24 06:00 11/04/24 06:32 10 ML Aspirin 81 mg DAILY PO 11/01/24 10:00 11/04/24 08:45 81 MG Acetaminophen/ Hydrocodone Bitart 1 tab Q4HP PRN PO 10/31/24 11:30 11/04/24 05:00 1 TAB Ondansetron HCl 4 mg Q4HP PRN IV 10/31/24 11:30 Hold Docusate Sodium 100 mg BIDPRN PRN PO 10/31/24 11:30 Acetaminophen 650 mg Q6HP PRN PO 10/31/24 11:30 Nitroglycerin 0.4 mg Q5MINP PRN SL 10/31/24 11:30 Morphine Sulfate 2 mg Q30M PRN IV 10/31/24 11:30 Prednisone 5 mg DAILY PO 11/01/24 10:00 11/04/24 08:45 5 MG Atorvastatin Calcium 40 mg HS PO 10/31/24 22:00 11/03/24 21:13 40 MG Diagnostic Test (Pha) 1 strip ACHS 10/31/24 17:00 11/04/24 06:32 1 STRIP Insulin Human Regular HS SC 10/31/24 22:00 11/03/24 21:14 6 UNITS Insulin Human Regular AC SC 10/31/24 17:00 11/04/24 06:33 2 UNITS Dextrose 50 ml UD PRN IV 10/31/24 11:45 Montelukast Sodium 10 mg HS PO 11/01/24 22:00 11/03/24 21:12 10 MG Enoxaparin Sodium 40 mg DAILY SC 11/03/24 10:00 11/04/24 08:46 40 MG Furosemide 60 mg BIDD IV 11/02/24 18:00 11/04/24 06:31 60 MG Empaglifozin 10 mg DAILY PO 11/03/24 10:00 Ceftriaxone Sodium 50 ml @ 100 mls/hr DAILY@09 IV 11/04/24 09:00 laboratory and microbiology Laboratory Tests 11/03/24 05:39 Test 11/03/24 05:39 Range/Units Serum Glucose 100 74-106 mg/dL Problem List/Assessment/Plan Problem List/Assessment/Plan NSTEMI Acute on chronic decompensated HFmrEF, NYHA class III Severe aortic valve stenosis status post bioprosthetic TAVR History of SVT Hypertension Dyslipidemia Moderate tricuspid valve regurgitation Pulmonary hypertension History of PE (on dabigatran) Type 2 diabetes mellitus Asthma Morbid obesity Plan/Recommendations (Dr. Coffman): Case discussed with . A transthoracic echocardiogram done on this admission reveals an EF of 45-50%, RVSP 42 mmHg. Previous transthoracic echocardiogram from 10/07/2023 reveals an EF of 40%. Continue GDMT for CHF as tolerated. For HFmrEF patients, diuretics are class 1 indication as needed. SGLT2i are class 2a, we will initiate Jardiance therapy. ACEi/ARB/ARNI and MRA considered class 2b, initiate if deemed beneficial. CT angio negative for pulmonary embolism but reveals cardiomegaly with diffuse bilateral coarse reticular opacities as well as ground-glass attenuation throughout. Chest x-ray done today (11/02/24) reveals unchanged pulmonary vascular congestion. We will increase Lasix dose. Continue with strict intake and output, daily weights, maintain fluid restriction, and low-sodium diet. The patient's daughter, Kate called [place] and confirmed with cardiology PA that the patient underwent a coronary angiogram with left heart catheterization earlier this year without any catheter based intervention. Cath report reviewed and notes significnat CAD. Per report patient has 99% ostial LCX lesion as well ostial LAD 25-50% lesion and mid LAD lesion as well. Patient seems to have small amount of right to left collaterals. Given your information, plan of care discussed with patient and daughter at bedside regarding possible angiogram versus medical management. Per daughter and patient they would like to proceed with coronary angiogram due to new NSTEMI. Continue with close cardiac surveillance. Therefore recommend cardiac catheterization +/- PCI. All risks, benefits, and alternatives of cardiac catheterization explained to the patient including the risk of stroke, AL, , coronary perforation, pericardial tamponade, contrast induced nephropathy, need for emergent CABG, mechanical support, mechanical ventilation, and bleeding from vascular complications from the procedure. Patient is agreeable to proceed with procedure. NPO after midnight. Thank you for allowing us to care for this patient. Please call with any questions or concerns. Plan discussed with: Patient, Daughter Date of Service: Nov 04, 2024 Billing Provider: LAINA BARRIENTOS Common Visit Codes: [id number] INP/OBS CARE(HIGH), [id number] CARE 30-74 MIN LAINA BARRIENTOS Nov 04, 2024 11:24
[2024-11-04] MEDS: ENOXAPARIN SOD 60 MG/0.6 ML SYRINGE SC ONE (11:30)
[2024-11-04] MEDS: ENOXAPARIN SOD 100 MG/1 ML SYRINGE SC SCH (21:30)
[2024-11-05] VITALS (11 sets, daily range): BP systolic 100–150; BP diastolic 32–99; PULSE 69–81; RESP 15–18; TEMP 97.6–98.8; O2SAT 97–100
--- NOTE | 2024-11-05 09:27 | DVHPN2 ---
Reviewed: Care Plan, H&P, Labs, Medications, Previous Orders, Radiology Changes from previous H/P or p: No Changes Objective Vitals Vital Signs Date Time Temp Pulse Resp B/P (MAP) Pulse Ox O2 Delivery O2 Flow Rate FiO2 11/05/24 09:00 98.0 70 16 124/76 (92) 100 98.0 11/05/24 08:00 Nasal Cannula* 2 28 Intake/Output Intake and Output 11/05/24 07:00 Intake Total 510 ml Output Total 2000 ml Balance -1490 ml Intake Oral 460 ml IV Total 50 ml Output Urine Total 2000 ml Medications Current Medications Medications Dose Ordered Sig/Shelley Route Start Time Stop Time Status Last Admin Dose Admin Sodium Chloride 10 ml Q8HR IV 10/31/24 06:00 11/05/24 06:19 10 ML Aspirin 81 mg DAILY PO 11/01/24 10:00 11/04/24 08:45 81 MG Acetaminophen/ Hydrocodone Bitart 1 tab Q4HP PRN PO 10/31/24 11:30 11/04/24 20:46 1 TAB Ondansetron HCl 4 mg Q4HP PRN IV 10/31/24 11:30 Hold Docusate Sodium 100 mg BIDPRN PRN PO 10/31/24 11:30 Acetaminophen 650 mg Q6HP PRN PO 10/31/24 11:30 Nitroglycerin 0.4 mg Q5MINP PRN SL 10/31/24 11:30 Morphine Sulfate 2 mg Q30M PRN IV 10/31/24 11:30 Prednisone 5 mg DAILY PO 11/01/24 10:00 11/04/24 08:45 5 MG Atorvastatin Calcium 40 mg HS PO 10/31/24 22:00 11/04/24 21:29 40 MG Diagnostic Test (Pha) 1 strip ACHS 10/31/24 17:00 11/05/24 06:19 1 STRIP Insulin Human Regular HS SC 10/31/24 22:00 11/04/24 21:31 6 UNITS Insulin Human Regular AC SC 10/31/24 17:00 11/05/24 06:21 2 UNITS Dextrose 50 ml UD PRN IV 10/31/24 11:45 Montelukast Sodium 10 mg HS PO 11/01/24 22:00 11/04/24 21:29 10 MG Furosemide 60 mg BIDD IV 11/02/24 18:00 11/05/24 06:19 60 MG Empaglifozin 10 mg DAILY PO 11/03/24 10:00 Ceftriaxone Sodium 50 ml @ 100 mls/hr DAILY@09 IV 11/04/24 09:00 11/05/24 09:20 100 MLS/HR Laboratory Results Laboratory Tests 11/03/24 05:39 Urinalysis Test 10/31/24 10:55 11/03/24 09:35 Urine Hyaline Casts Few /lpf (0 - 2) Urine Color Colorless (Yellow) Urine Clarity Turbid (Clear) H Urine pH 7.5 (5.0-9.0) Urine Specific [place] 1.012 (1.001-1.035) Urine Protein 2+ (Negative) H Urine Ketones Negative (Negative) Urine Blood 3+ /uL (Negative) H Urine Nitrite Negative (Negative) Urine Bilirubin Negative (Negative) Urine Urobilinogen Normal mg/dL (Negative) Urine Leukocyte Esterase 3+ /uL (Negative) Urine RBC 417 /hpf (0 - 4) Urine WBC Clumps Present /hpf (None Seen) Urine Microscopic WBC 407 /HPF (0-5) H Urine Squamous Epithelial Cells Few /hpf (<5) Urine Triple Phosphate Crystals Few /hpf (None Seen) Urine Bacteria Few /hpf (None Seen) H Urine Mucus Few (None Seen) Urine Glucose Normal mg/dL (Normal) Microbiology Microbiology Date/Time Source Procedure Growth Status 11/04/24 20:05 Urine - [place] Urine Culture - Preliminary Resulted Labs and/or images reviewed: Labs reviewed by me, Image(s) reviewed by me Assessment/Plan Assessment/Plan Covering for Dr. Rodríguez #1 acute on chronic systolic/diastolic heart failure: lasix iv #2 nstemi: per cardiology: Patient getting left heart catheterization today #3 asthma #4 h/o pe #5 h/o tavr #6 morbid obesity #7 htn #8 dm: ssi #9 hyperlipidemia #10 h/o svt #11 PE ruled out # 12 Acute urinary tract infection: Rocephin 1 g IV daily, urine cultures pending Left heart Catheterization one month ago at [facility] was negative Time spent 52 minutes Advanced care planning time 20 minutes Patient is full code Continue Current management Plan discussed with: Patient My Orders Orders - OLENA IBRAHIM MD Procedure Category Date Status Time Urine Bacterial RANDELL 8/31/25 In Process Culture 20:20 Type And Screen BBK 11/05/24 Logged 05:00 Date of Service: Nov 05, 2024 Billing Provider: OLENA IBRAHIM MD Common Visit Codes: [id number] INP/OBS CARE(HIGH) OLENA IBRAHIM MD Nov 05, 2024 09:27
[2024-11-05] MEDS: POTASSIUM CHL 20MEQ/100ML 100 ML IV ONE (09:45)
[2024-11-05] MEDS ORDERED: IODIXANOL 320MG/ML 100ML BTL IV ONE ×2 (11:05→11:40)
[2024-11-05] MEDS ORDERED: HEPARIN IN NS 1000Units/500mL 1,500 ML ONE (11:05)
[2024-11-05] MEDS ORDERED: fentaNYL CITRATE 100 MCG/2 ML VL ONE (11:39)
[2024-11-05] MEDS ORDERED: VERAPAMIL 2.5MG/ML INJ 2ML VIAL IV ONE (11:39)
[2024-11-05] MEDS ORDERED: LIDOCAINE 2%HCL (LOCAL ANESTH.) INJ 20ML MDV ONE (11:40)
[2024-11-05] MEDS ORDERED: MIDAZOLAM HCL 2MG/2ML 2ml VIAL (1mg/ml) ONE (11:40)
[2024-11-05] MEDS ORDERED: HEPARIN SODIUM (PORCINE) 5000 UNITS/ML 1ML VIAL ONE (11:45)
[2024-11-05] MEDS ORDERED: ANGIOMAX 250 MG VIAL IV ONE (12:42)
[2024-11-05] MEDS ORDERED: SODIUM CHL 0.9% 0 ML ONE (12:42)
--- NOTE | 2024-11-05 13:36 | DVHOP2 ---
Operative Report - 2 Report Details Date: 11/05/24 Preop Diagnosis: CAD Postop Diagnosis: Left main disease. Circumflex stenosis of severe degree. Lad stenosis. EF of 40% with associated ischemic cardiomyopathy. Status post TAVR Surgeon: Bibi Coffman MD Anesthesiologist: Conscious sedation Anesthesia: Mac Consent: The patient was informed of the risks and benefits of the procedure. These include but are not limited to complications of anesthesia, postoperative infection, incomplete relief of symptoms, recurrence of symptoms, damage to blood vessels, nerves and tendons, deep venous thrombosis, pulmonary embolism and possible need for repeat surgery in the future. Complications: No complications Findings: CAD. Indications for Surgery: Chest pain. CAD. Name of Procedure Performed Left heart catheterization. Bilateral cine coronary angiography. Left ventriculography. Procedure Details Procedure Details: Prior local anesthesia with 2% lidocaine to the right wrist and full informed consent obtained the patient was prepped and draped in usual fashion followed by placement of a six [place] sheath into the radial artery however we could not pass a diagnostic catheter beyond the elbow given the small luminal diameter of the radial artery prior to the origin of the brachial artery. Henceforth we obtained access through the right femoral artery left ventricle ultrasound and fluoroscopic guidance. Six [place] catheters were used to cannulate both right and left coronary ostia and ventriculography. No complications Hemodynamics: Aortic blood pressure was 110/70. End-diastolic pressure was fi ve. There was no gradient across the aortic valve on pullback. Coronary anatomy the RCA is a large vessel it is normal in its proximal mid and distal segments. The PDA and posterolateral branches are normal. The left main is a large vessel it has an ostial 75-80% stenosis by angiographic evaluation. The distal 3rd of the left main is moderately narrowed as well with calcification. Left anterior descending coronary artery is a medium vessel it has mild plaquing in its proximal portion followed by 75-80% stenosis proximally. The mid and distal segments are free of significant disease as are the diagonals. The circumflex is a large vessel however it faintly fills given a 99% stenosis with faint filling of flow into the mid distal segments. From the limited views obtained there appears to be a [id number] circumflex at its midportion. Ventriculography in the EPPS projection shows an EF of about 40% Impression: Normal left ventricular end-diastolic pressure at rest. Decreased left ventricular ejection fraction. Two-vessel coronary artery disease as delineated above with the associated ostial left main. Ostial circumflex. Proximal left anterior descending coronary artery disease. Recommendations: Would suggest coronary bypass grafting. Discussed with patient and family. They wished to be transferred to [place] for further evaluation and treatment. Condition Guarded Disposition Still a Patient Date of Service: Nov 05, 2024 Billing Provider: BIBI COFFMAN Sr., MD Cardiology Common Codes: [id number] INP/OBS CARE (High) Cardiology Procedure Codes: [id number] HEART CATH W/INTRA INJ BIBI COFFMAN Sr., MD Nov 05, 2024 13:36
[2024-11-05] MEDS: POTASSIUM EFFERVESENT TAB 25 MEQ PO ONE (18:45)
[2024-11-05] MEDS: ACETAMINOPHEN 325 MG TAB PO PRN (20:10)
== END 2024-11-05 20:45 | disposition short-term general hospital (02) | DRG 280 ==
LOC: ER 19:47 → EDBD 19:47 → OVERFLOW 10-31 11:30 → TELE-CENTR 10-31 21:53
PROVIDERS: ADMIT Family Medicine; ATTEND Family Medicine
PROC: 4A023N7 Measurement of Cardiac Sampling and Pressure, Left Heart, Percutaneous Approach (ICD-10-PCS; principal; 2024-11-05)
PROC: B211YZZ Fluoroscopy of Multiple Coronary Arteries using Other Contrast (ICD-10-PCS; 2024-11-05)
PROC: B215YZZ Fluoroscopy of Left Heart using Other Contrast (ICD-10-PCS; 2024-11-05)
DX: I21.4 Non-ST elevation (NSTEMI) myocardial infarction (principal); I50.43 Acute on chronic combined systolic (congestive) and diastolic (congestive) heart failure; R65.11 Systemic inflammatory response syndrome (SIRS) of non-infectious origin with acute organ dysfunction; N39.0 Urinary tract infection, site not specified; I25.5 Ischemic cardiomyopathy; I35.0 Nonrheumatic aortic (valve) stenosis; I11.0 Hypertensive heart disease with heart failure; I27.20 Pulmonary hypertension, unspecified; E78.5 Hyperlipidemia, unspecified; J45.909 Unspecified asthma, uncomplicated; E11.9 Type 2 diabetes mellitus without complications; Z20.822 Contact with and (suspected) exposure to COVID-19; E66.01 Morbid (severe) obesity due to excess calories; I44.7 Left bundle-branch block, unspecified; I07.1 Rheumatic tricuspid insufficiency; I25.10 Atherosclerotic heart disease of native coronary artery without angina pectoris; Z68.39 Body mass index [BMI] 39.0-39.9, adult; Z86.711 Personal history of pulmonary embolism; Z86.73 Personal history of transient ischemic attack (TIA), and cerebral infarction without residual deficits; Z95.2 Presence of prosthetic heart valve; Z82.49 Family history of ischemic heart disease and other diseases of the circulatory system; Z98.51 Tubal ligation status
CPT/HCPCS: 36415; 71045; 71275; 80048; 80053; 80061; 81001; 82962; 83036; 83735; 83880; 84443; 84484; 85025; 85379; 85610; 85730; 86850; 86900; 86901; 87086; 87088; 87186; 87426; 87804; 93005; 93306; 93458; 93970; 96374; 96375; 97110; 97116; 97163; 99152; 99291; G0378; J0153; J1815; J2250; J3480; Q9967